=== PATIENT | female | born 1945 | race Caucasian/White ===

== ENCOUNTER → 2020-12-13 02:59 | Outpatient (CLI) | payer MEDICARE, OTHER, SELFPAY ==
[2020-12-13 20:06] LABS: SARS-CoV-2 RNA PCR Negative
== END ==
PROVIDERS: PCP Internal Medicine; Visit Provider Internal Medicine Gastroenterology
DX: Z01.812 Encounter for preprocedural laboratory examination (principal); Z20.822 Contact with and (suspected) exposure to COVID-19
CPT/HCPCS: C9803; U0003; U0005

== ENCOUNTER 2020-12-16 03:13 | Day surgery (SDC) | payer MEDICARE, OTHER, SELFPAY ==
[2020-12-08 15:45] VITALS: BMI 33.0
[2020-12-16 07:53] VITALS: BP 133/63; PULSE 67; RESP 15; TEMP 36.2; O2SAT 97; BMI 33.6
[2020-12-16] MEDS: LACTATED RINGERS 1,000 ML 150 ML IV CONT (08:10)
--- NOTE | 2020-12-16 08:41 | WPDANESEPPF ---
Anes - Initial Pre Proc Eval Procedure: Operation Date: 12/16/20 09:00 Proposed Procedures p Esophagogastroduodenoscopy - Ian Nair MD Date/Time: 12/16/20 08:41 Surgeon: Ian Nair MD Pre Op Diagnosis: GERD Patient Data Age: 75 Gender: F Height: 5 ft 6 in Weight: 94.6 kg Last Vital Signs Temp 97.1 F L 12/16/20 07:53 Pulse 67 12/16/20 07:53 Resp 15 12/16/20 07:53 BP 133/63 12/16/20 07:53 Pulse Ox 97 12/16/20 07:53 Allergies Allergy/AdvReac Type Severity Reaction Status Date / Time No Known Allergies Allergy Verified 12/16/20 07:49 Home Medications Medication Instructions Recorded Confirmed Type Adults Multivitamin 1 tablet PO DAILY 07/06/19 12/16/20 History Linzess 145 mcg PO DAILY 07/06/19 12/16/20 History [place]-3 Fish Oil 1 cap PO BID 07/06/19 12/16/20 History alprazolam 0.25 mg PO TID PRN 07/06/19 12/16/20 History aspirin 81 mg PO DAILY 07/06/19 12/16/20 History coQ10 (ubiquinol) 200 mg PO DAILY 07/06/19 12/16/20 History hydrochlorothiazide 25 mg PO DAILY 07/06/19 12/16/20 History ibuprofen 600 mg PO BID PRN 07/06/19 12/16/20 History omeprazole 20 mg PO DAILY 07/06/19 12/16/20 History potassium chloride 20 meq PO DAILY 07/06/19 12/16/20 History pravastatin 40 mg PO HS 07/06/19 12/16/20 History tramadol 50 mg PO QAM 07/06/19 12/16/20 History cholecalciferol (vitamin D3) 50 mcg PO DAILY 12/08/20 12/16/20 History conjugated estrogens [Premarin] 0.625 mg VAGINAL 2XW 12/08/20 12/16/20 History oxybutynin chloride 10 mg PO DAILY 12/08/20 12/16/20 History Patient hx anesthesia problems: none Family hx anesthesia problems: none PMFSH Past Medical History Medical History (Updated 10/27/20 @ 08:37 by Ian Nair MD) Arthritis BMI 34.0-34.9,adult Bronchitis Constipation COPD (chronic obstructive pulmonary disease) Family history of colon cancer Hyperlipidemia Hypertension Social History Social History (Updated 10/27/20 @ 08:22 by Courtney Vasquez CMA) Smoking packs per day: 1.5 Smoking cigarettes per day: 30.0 Years smoked: 40 Smoking pack-years: 60.00 Smoking status: Former smoker Alcohol intake: current Alcohol use details: rarely Substance use: never Living arrangements: with family Spiritual care concerns: No Anes - Eval Final PreProcedure Day of Procedure 12/16/20 08:41 Patient weight: overweight Heart: regular rate and rhythm Lungs: clear to auscultation Airway: Mallampati scale class III Neurological: alert and oriented Last oral intake: >/= 8 hours ASA classification: III Emergent: no Anesthetic plan: proceed Anesthesia type and monitoring: general GIVS and standard monitoring Informed Consent: The patient's anesthetic plan and its attendant risks and benefits were discussed with the patient/family/POA. Questions were solicited and answers provided to the satisfaction of the patient/family/POA.
--- NOTE | 2020-12-16 08:54 | PM.HPGS ---
History of Present Illness History of Present Illness Consent: Risks, benefits, and alternatives have been discussed and questions answered. Patient agrees to proceed with procedure. Chief complaint: GERD Narrative: Joyce Girard is a 75 year old female here for egd, she has long standing GERD on omeprazole for few years but since July more breakthrough using tums, never had egd Review of Systems Constitutional: Constitutional: Denies headache(s) and Denies weakness Eyes: Eyes: Denies blurry vision ENT: Reports Normal hearing present, Denies headache(s) and Denies neck pain Cardiovascular: Cardiovascular: Denies chest pain and Denies dyspnea Respiratory: Respiratory: Denies dyspnea Gastrointestinal: Gastrointestinal: Reports no additional gastrointestinal complaints Genitourinary: Genitourinary: Denies dysuria Musculoskeletal: Musculoskeletal: Denies neck pain Integumentary/Breasts: Skin/Breast: Denies dry skin Neurologic: Reports Normal hearing present, Denies headache(s) and Denies weakness Psychiatric: Psychiatric: Denies anxiety Endocrine: Endocrine: Denies change in body appearance Hematologic/Lymphatic: Hematologic/Lymphatic: Denies easy bleeding Allergic/Immunologic: Allergic/Immunologic: Denies urticaria PMF Past Medical History Medical History (Updated 12/16/20 @ 08:55 by Ian Nair MD) Arthritis BMI 34.0-34.9,adult Bronchitis Constipation COPD (chronic obstructive pulmonary disease) Family history of colon cancer GERD (gastroesophageal reflux disease) Hyperlipidemia Hypertension Social History Social History (Updated 10/27/20 @ 08:22 by Courtney Vasquez CMA) Smoking packs per day: 1.5 Smoking cigarettes per day: 30.0 Years smoked: 40 Smoking pack-years: 60.00 Smoking status: Former smoker Alcohol intake: current Alcohol use details: rarely Substance use: never Living arrangements: with family Spiritual care concerns: No Meds Home Medications and Allergies Home Medications Medication Instructions Recorded Confirmed Type Adults Multivitamin 1 tablet PO DAILY 07/06/19 12/16/20 History Linzess 145 mcg PO DAILY 07/06/19 12/16/20 History [place]-3 Fish Oil 1 cap PO BID 07/06/19 12/16/20 History alprazolam 0.25 mg PO TID PRN 07/06/19 12/16/20 History aspirin 81 mg PO DAILY 07/06/19 12/16/20 History coQ10 (ubiquinol) 200 mg PO DAILY 07/06/19 12/16/20 History hydrochlorothiazide 25 mg PO DAILY 07/06/19 12/16/20 History ibuprofen 600 mg PO BID PRN 07/06/19 12/16/20 History omeprazole 20 mg PO DAILY 07/06/19 12/16/20 History potassium chloride 20 meq PO DAILY 07/06/19 12/16/20 History pravastatin 40 mg PO HS 07/06/19 12/16/20 History tramadol 50 mg PO QAM 07/06/19 12/16/20 History cholecalciferol (vitamin D3) 50 mcg PO DAILY 12/08/20 12/16/20 History conjugated estrogens [Premarin] 0.625 mg VAGINAL 2XW 12/08/20 12/16/20 History oxybutynin chloride 10 mg PO DAILY 12/08/20 12/16/20 History Allergies Allergy/AdvReac Type Severity Reaction Status Date / Time No Known Allergies Allergy Verified 12/16/20 07:49 Vital Signs Vital Signs - 24 hr 12/16/20 07:53 Temperature 97.1 F L Pulse Rate 67 Respiratory Rate 15 Blood Pressure 133/63 Pulse Oximetry 97 Exam Const: General: comfortable and no acute distress HENMT: General nose exam: Normal nares present Eyes: General: appearance normal, both eyes and all related structures Neck: Neck: no JVD Resp: Auscultation: clear to auscultation bilaterally Cardio: Rate: regular rate Rhythm: regular rhythm GI: Inspection: non-distended GI Palp: Yes Soft to palpation Skin: General skin exam: normal color Neuro: General: gait normal Speech: normal speech Extrem: General: normal to inspection Psych: Mental Status: mental status grossly normal Assessment and Plan Assessment and plan (1) GERD (gastroesophageal reflux disease): Code(s): K21.9 - Gastro-e
[2020-12-16 09:05] VITALS: BP 142/72; PULSE 66; RESP 20; O2SAT 97
[2020-12-16 09:15] VITALS: BP 129/70; PULSE 65; RESP 22; O2SAT 97
[2020-12-16 09:25] VITALS: BP 124/73; PULSE 64; RESP 18; O2SAT 97
== END 2020-12-16 09:44 | disposition home or self-care (01) ==
PROVIDERS: PCP Internal Medicine; Visit Provider Internal Medicine Gastroenterology
PROC: 0DJ08ZZ Inspection of Upper Intestinal Tract, Via Natural or Artificial Opening Endoscopic (ICD-10-PCS; CPT 43235; principal; 2020-12-16 09:00)
DX: K21.00 Gastro-esophageal reflux disease with esophagitis, without bleeding (principal); K29.50 Unspecified chronic gastritis without bleeding; I10 Essential (primary) hypertension; E78.5 Hyperlipidemia, unspecified; J44.9 Chronic obstructive pulmonary disease, unspecified; Z80.0 Family history of malignant neoplasm of digestive organs; Z87.891 Personal history of nicotine dependence; Z79.82 Long term (current) use of aspirin
CPT/HCPCS: 43239; 88305; 88342; J2001; J2704; J7120

== ENCOUNTER 2023-08-01 12:53 | Outpatient (CLI) | payer MEDICARE, OTHER, SELFPAY | END 2023-08-01 12:54 | disposition home or self-care (01) | LOC: ANHAUDASC 12:54 | PROVIDERS: PCP Internal Medicine; Visit Provider Otolaryngology | DX: H90.3 Sensorineural hearing loss, bilateral (principal) | CPT/HCPCS: 92557; 92567 ==

== ENCOUNTER 2024-09-11 01:59 | Day surgery (SDC) | payer MEDICARE, OTHER, SELFPAY ==
[2024-08-26 10:52] VITALS: BMI 36.4
--- NOTE | 2024-08-28 10:54 | PC.NURSE ---
Pt voiced concern if she needs antibiotics prior to procedure due to have a knee replacement, she was advised to call her ortho. surgeon. She called back and stated the orthopedic surgeons office state it was up to Dr. Gibbs. I called pt and left message that Dr. Gibbs does not routinely give antibiotics for this procedure as it is not recommended under the guidelines.
--- OUTSIDE RECORDS SUMMARY | 2024-09-11 02:03 | XMS_ITS | Continuity of Care Document ---
Author Organization [facility] Address [address] [place] [address] Phone Care Team Providers Care Finance Professor Name Role Phone Rambo Decker Unavailable Unavailable Procedures Procedure Date Eye Exam & Treatment Refraction Eye Exam & Treatment Refraction Eye Exam, New Patient Refraction Advance Directives Directive Yes / No Effective Date File Name No Information Encounters Encounter Description Practice Location Reason(s) For Visit Diagnoses Date Provider Providers Copied on Encounter [facility], [id number] [place] [address] [address], [place], [place], [id number], tel:[phone] [facility] No Information Juan Ramon-1 [phone] 0 Brianne Ricks. [address] , [address], [place], [place], [facility], . tel:[phone] [facility], [address], [place], [place], [id number], [place] tel:[phone] [facility] No Information Juan Ramon-1 [phone] Brianne Ricks. [address], [address], [place], [place], [facility], [place]. tel:[phone] [facility], [address], [place], [place], [id number], tel:[phone] [facility] No Information Juan Ramon-0 6-200 7 [employer] [facility]. [address] , [address], [place], [address], [place]. tel:[phone] Family History Family Member Type Diagnosis Age At Onset No Information Payers Payer name Insurance type Covered democrat ID Authoriza tiadry(s) [place] [id number] [id number] Social History Type Description Quantity Date Captured Comments Sex Female Smoking Status No Information Chief Complaint And Reason For Visit No Information Reason For Referral Reason For Referral No Information History Of Present Illness Encounter Date Complaint History Of Prese nt Illness No Information Functional Status Date Functional Assessmen t No Information Instructions Date Instruction Additional Infor mation No Information Assessments Type Assessment Date No Information Patient Care Teams Name Effective Dates (start - stop) Status Members No Information
[2024-09-11 07:27] VITALS: BMI 34.9
[2024-09-11 07:30] VITALS: BP 147/65; PULSE 85; RESP 16; TEMP 36.5; O2SAT 94
[2024-09-11] MEDS: LACTATED RINGERS 1,000 ML 150 ML IV CONT (07:40)
--- NOTE | 2024-09-11 07:59 | P.PNAN_ITS ---
Anes - Initial Pre Proc Eval Procedure: Operation Date: 09/11/24 08:30 Proposed Procedures p Colonoscopy - Mingo Gibbs MD Date/Time: 09/11/24 07:59 Surgeon: Mingo Gibbs MD Pre Op Diagnosis: Personal HX and family HX of colon polyps Patient Data Age: 79 Gender: F Height: 1.63 m Weight: 92.4 kg Last Vital Signs Temp 36.5 C 09/11/24 07:30 Pulse 85 09/11/24 07:30 Resp 16 09/11/24 07:30 BP 147/65 H 09/11/24 07:30 Pulse Ox 94 09/11/24 07:30 O2 Del Method Room Air 09/11/24 07:30 Allergies Allergy/AdvReac Type Severity Reaction Status Date / Time No Known Allergies Allergy Verified 09/11/24 07:25 Home Medications ?Medication ?Instructions ?Recorded ?Confirmed ?Type alprazolam 0.25 mg tablet 0.25 mg PO TID PRN Anxiety 07/06/19 09/11/24 History aspirin 81 mg tablet,delayed 81 mg PO DAILY 07/06/19 09/11/24 History release hydrochlorothiazide 25 mg tablet 25 mg PO DAILY 07/06/19 09/11/24 History linaclotide 145 mcg capsule 145 mcg PO DAILY 07/06/19 09/11/24 History (Linzess) multivit with minerals-iron 18 1 tablet PO DAILY 07/06/19 09/11/24 History mg-folic ac 400 mcg-vit K 25 mcg tablet (Adults Multivitamin) omega 3-gtr-nxg-fish oil 910 1 cap PO BID 07/06/19 09/11/24 History mg-1,400 mg capsule ([place]-3 Fish Oil) pravastatin 40 mg tablet 40 mg PO HS 07/06/19 09/11/24 History tramadol 50 mg tablet 50 mg PO QAM 07/06/19 09/11/24 History cholecalciferol (vitamin D3) 50 50 mcg PO DAILY 12/08/20 09/11/24 History mcg (2,000 unit) capsule conjugated estrogens 0.625 mg/gram 0.625 mg vaginal 2XW 12/08/20 09/11/24 History vaginal cream (Premarin) omeprazole 20 mg capsule,delayed 20 mg PO DAILY #90 caps 12/07/21 09/11/24 Rx release ibuprofen 200 mg tablet 800 mg PO BID PRN Pain 07/02/23 09/11/24 History potassium chloride 20 mEq oral 20 meq PO BID 07/02/23 09/11/24 History packet fluticasone furoate 50 1 inh inhalation Q24H 08/26/24 09/11/24 History mcg-vilanterol 25 mcg/dose inhalation powder (Breo Ellipta) Patient hx anesthesia problems: none Family hx anesthesia problems: none Results Review: All pre-operative results and documents have been reviewed as part of the pre- operative evaluation. [facility] Past Medical History Medical History GERD (gastroesophageal reflux disease) Constipation BMI 34.0-34.9,adult Family history of colon cancer Arthritis Hyperlipidemia Hypertension COPD (chronic obstructive pulmonary disease) Bronchitis Surgical History Surgical History History of hip replacement (~10/2022) Family History Family History Sibling , 01/2022 Agent orange exposure Social History Social History Social History: Caffeine-coffee Smoking packs per day: 1.5 Smoking cigarettes per day: 30.0 Years smoked: 40 Smoking pack-years: 60.00 Smoking status: Former smoker Smoking end date: 07/29/10 Alcohol intake: current Alcohol use details: rarely Substance use: never Lack of Transportation: No Lack of Food: Never True Current Housing: I Have Housing Concerned About Future Housing: No Difficulty Paying Gas/Electric Bills: No Difficulty Paying for Meds: No Currently Unemployed: No Education: Trade/Vocational Certificate Difficulty w/ Childcare or Family Care: No Living arrangements: alone Spiritual care concerns: No Anes - Eval Final PreProcedure Day of Procedure 09/11/24 07:59 Patient weight: obese Heart: regular rate and rhythm Lungs: clear to auscultation Airway: Mallampati scale class II Neurological: alert and oriented Last oral intake: >/= 8 hours ASA classification: III Emergent: no Anesthetic plan: proceed Anesthesia type and monitoring: general GIVS and standard monitoring Results Review: All pre-operative results and documents have been reviewed as part of the pre- operative evaluation. Informed Consent: The patient's anesthetic plan and its attendant risks and benefits were discussed with the patient/family/POA. Questions were solicited and answers provided to the satisfaction of the patient/family/POA.
--- NOTE | 2024-09-11 08:26 | P.HP_ITS ---
H&P: HPI History of Present Illness Date/Time: 09/11/24 08:26 Chief Complaint: History of colon polyps Narrative: The patient has a history of colonic polyps, the last colonoscopy was approximately 5 year Review of Systems Review of Systems: All systems reviewed & are unremarkable except as noted in HPI and below PMFSH Past Medical History Medical History GERD (gastroesophageal reflux disease) Constipation BMI 34.0-34.9,adult Family history of colon cancer Arthritis Hyperlipidemia Hypertension COPD (chronic obstructive pulmonary disease) Bronchitis Surgical History Surgical History History of hip replacement (~10/2022) Family History Family History Sibling , 01/2022 Agent orange exposure Social History Social History Social History: Caffeine-coffee Smoking packs per day: 1.5 Smoking cigarettes per day: 30.0 Years smoked: 40 Smoking pack-years: 60.00 Smoking status: Former smoker Smoking end date: 07/29/10 Alcohol intake: current Alcohol use details: rarely Substance use: never Lack of Transportation: No Lack of Food: Never True Current Housing: I Have Housing Concerned About Future Housing: No Difficulty Paying Gas/Electric Bills: No Difficulty Paying for Meds: No Currently Unemployed: No Education: Trade/Vocational Certificate Difficulty w/ Childcare or Family Care: No Living arrangements: alone Spiritual care concerns: No Meds Home Medications and Allergies Home Medications ?Medication ?Instructions ?Recorded ?Confirmed ?Type alprazolam 0.25 mg tablet 0.25 mg PO TID PRN Anxiety 07/06/19 09/11/24 History aspirin 81 mg tablet,delayed 81 mg PO DAILY 07/06/19 09/11/24 History release hydrochlorothiazide 25 mg tablet 25 mg PO DAILY 07/06/19 09/11/24 History linaclotide 145 mcg capsule 145 mcg PO DAILY 07/06/19 09/11/24 History (Linzess) multivit with minerals-iron 18 1 tablet PO DAILY 07/06/19 09/11/24 History mg-folic ac 400 mcg-vit K 25 mcg tablet (Adults Multivitamin) omega 4-fkz-bar-fish oil 910 1 cap PO BID 07/06/19 09/11/24 History mg-1,400 mg capsule ([place]-3 Fish Oil) pravastatin 40 mg tablet 40 mg PO HS 07/06/19 09/11/24 History tramadol 50 mg tablet 50 mg PO QAM 07/06/19 09/11/24 History cholecalciferol (vitamin D3) 50 50 mcg PO DAILY 12/08/20 09/11/24 History mcg (2,000 unit) capsule conjugated estrogens 0.625 mg/gram 0.625 mg vaginal 2XW 12/08/20 09/11/24 Histo ry vaginal cream (Premarin) omeprazole 20 mg capsule,delayed 20 mg PO DAILY #90 caps 12/07/21 09/11/24 Rx release ibuprofen 200 mg tablet 800 mg PO BID PRN Pain 07/02/23 09/11/24 History potassium chloride 20 mEq oral 20 meq PO BID 07/02/23 09/11/24 History packet fluticasone furoate 50 1 inh inhalation Q24H 08/26/24 09/11/24 History mcg-vilanterol 25 mcg/dose inhalation powder (Breo Ellipta) Allergies Allergy/AdvReac Type Severity Reaction Status Date / Time No Known Allergies Allergy Verified 09/11/24 07:25 Vital Signs Vital Signs - 24 hr 09/11/24 07:30 Temperature 97.7 F Pulse Rate 85 Respiratory Rate 16 Blood Pressure 147/65 H Pulse Oximetry 94 Oxygen Delivery Room Air Exam Const: General: cooperative and healthy appearing Resp: Effort & Inspection: normal respiratory effort and able to speak in complete sentences Auscultation: clear to auscultation bilaterally Cardio: Rate: regular rate Rhythm: regular rhythm GI: Inspection: normal to inspection GI Palp: No No hepatosplenomegaly present Auscultation: normal bowel sounds Rectal Exam: deferred Skin: General skin exam: normal color Psych: Appearance: grossly normal Mental Status: mental status grossly normal Assessment and Plan Assessment and plan (1) History of colonic polyps: Code(s): Z86.0100 - Personal history of colon polyps, unspecified Status: Acute Assessment and Plan: The patient is deemed a good candidate for the procedure. Consent signed. Will proceed.
[2024-09-11 09:02] VITALS: BP 144/78; PULSE 74; RESP 23; O2SAT 97
[2024-09-11 09:12] VITALS: BP 140/76; PULSE 74; RESP 17; O2SAT 98
[2024-09-11 09:22] VITALS: BP 148/74; PULSE 73; RESP 18; O2SAT 100
== END 2024-09-11 09:42 | disposition home or self-care (01) ==
PROVIDERS: PCP Internal Medicine; Visit Provider Internal Medicine Gastroenterology
PROC: 0DJD8ZZ Inspection of Lower Intestinal Tract, Via Natural or Artificial Opening Endoscopic (ICD-10-PCS; CPT 45378; principal; 2024-09-11 08:30)
DX: Z12.11 Encounter for screening for malignant neoplasm of colon (principal); K57.30 Diverticulosis of large intestine without perforation or abscess without bleeding; Z86.0100 Personal history of colon polyps, unspecified; Z87.891 Personal history of nicotine dependence
CPT/HCPCS: G0105; J2003; J2704; J7120

== ENCOUNTER 2024-12-03 12:21 | Outpatient (CLI) | payer MEDICARE, OTHER, SELFPAY ==
--- OUTSIDE RECORDS SUMMARY | 2024-12-03 12:27 | XMS_ITS | Data Portability ---
Author Organization [facility] JAYDENEdwar Address [address] [place] [address] Assessment Encounter Date Assessment Date Assessment LastModified by Organization Details LastModified Time 02/01/2021 02/01/2021 Mindy mayorga Not available 02/02/2021 09:03:28 Plan of Treatment Reminders Order Date Submit Date Provider Last Modified By Organization Details Last Modified Time Details Appointments None recorded. Lab urinalysi s, dipstick 2017 018 [email or web address] In-Office Order, Internal Use Only DO Not Attach Compendium DO Not Attach Compendium, Do Not Delete/merge, [id number] 8 11:02:13 Referral urologist referral 2019 020 [facility] Irving Villegas MD, [address] [facility] [address], [place], [address], 0 17:26:14 Procedures None recorded. Surgeries None recorded. Imaging MAMMO, screening , bilateral 2020 021 [facility] ([facility] Sched[facility]), [address] [place], [address], 1 13:24:01 MAMMO, screening , bilateral 2018 019 [facility] ([facility] Scheduling), [address] [place], [address], 9 02:31:07 MAMMO, screening , bilateral 2017 018 [facility] ([facility] Call Scheduling), [address] [place], [address], 8 13:52:18 Medication Orders Linzess 145 mcg capsule 2020 021 [facility], [address] [place] [address], [id number], 1 15:49:35 Premarin 0.625 mg/gram vaginal cream 2020 021 [facility], [address] [place] [address], [id number], 1 15:49:36 oxybutyni n chloride ER 10 mg tablet,ex tended release 24 hr 2020 021 [facility], [address] [place] [address], [id number], 1 15:49:37 Premarin 0.625 mg/gram vaginal cream 2019 020 [facility], [address] [place] [address], [id number], 0 12:33:09 Elier s Butt Paste 40 % topical ointment 2019 020 [facility], [address] [place] [address], [id number], 0 17:51:11 Premarin 0.625 mg/gram vaginal cream 2019 020 [facility], [address] [place] [address], [id number], 0 15:00:22 Linzess 145 mcg capsule 2018 019 [facility] [address] [place], [address], 9 12:43:35 Linzess 145 mcg capsule 2017 018 [facility] [address] [place], [address], 8 11:02:52 Complete Multivita min tablet 2017 018 [facility] [address] [place], [address], 8 14:59:34 Calcium 500 + D 500 mg-5 mcg (200 unit) tablet 2017 018 [email or web address] [facility] [address] [place], [address], 9 12:21:03 Patient TargetsNo targets recorded. Patient Instructions Encounter Date Encounter Id Patient Instructions Last Modified By Organization Details Last Modified Time 10/14/2017 [id number] mammogram: about this test mwasserman Not available 10/14/2017 11:02:38 mammogram screening patient instructions mwasserman Not available 10/14/2017 11:02:38 10/16/2018 [id number] mammogram: about this test mwasserman Not available 10/16/2018 12:43:35 10/21/2019 [id number] atrophic vaginitis: care instructions mwasserman Not available 10/21/2019 14:58:54 01/26/2020 [id number] atrophic vaginitis: care instructions mwasserman Not available 01/26/2020 15:06:28 Stress Incontinence: Care Instructions mwasserman Not available 01/26/2020 12:31:51 kegel exercises: care instructions mwasserman Not available 01/26/2020 17:54:08 urinary incontinence information mwasserman Not available 01/26/2020 17:54:08 kegel exercises mwasserman Not available 01/26/2020 17:54:08 Eczema: Care Instructions mwasserman Not available 01/26/2020 17:49:47 02/01/2021 [id number] mammogram: about this test mwasserman Not available 02/01/2021 15:47:59 mammogram screening patient instructions mwasserman Not available 02/01/2021 15:48:00 atrophic vaginitis: care instructions mwasserman Not available 02/01/2021 15:47:59 Refilled meds for atrophic vagina, overactive bladder, and chronic idiopathic constipation. Discussed home breast exam and placed an order for mammogram. [email or web address] Not available 02/02/2021 10:05:19 Reason for Referral Urologist Referral for Urina ry incontinence Referring Physician: Omid Albright, RECEIVABLE CLERK, Encounter Date: 01/26/2020 Results Created Date Observation Date Name Description Value Unit Range Abnormal Flag Note LastModifiedBy Organization Detail LastModifiedTime 10/15/19 18 10/14/2017 urina lysis , dipst ick Leukocytes Negati ve Not Available In-Office Order Internal Use Only DO Not Attach Compendium DO Not Attach Compendium, Do Not Delete/merge, [id number] 10/14/2017 10:39:09 10/15/19 18 10/14/2017 urina lysis , dipst ick Nitrite negati ve Not Available In-Office Order Internal Use Only DO Not Attach Compendium DO Not Attach Compendium, Do Not Delete/merge, [id number] 10/14/2017 10:39:09 10/15/19 18 10/14/2017 urina lysis , dipst ick Urobilinogen .2 Not Available In-Of fice Order Internal Use Only DO Not Attach Compendium DO Not Attach Compendium, Do Not Delete/merge, [id number] 10/14/2017 10:39:09 10/15/19 18 10/14/2017 urina lysis , dipst ick Protein Negati ve Not Available In-Office Order Internal Use Only DO Not Attach Compendium DO Not Attach Compendium, Do Not Delete/merge, [id number] 10/14/2017 10:39:09 10/15/19 18 10/14/2017 urina lysis , dipst ick pH 6.0 Not Available In-Office Order Internal Use Only DO Not Attach Compendium DO Not Attach Compendium, Do Not Delete/merge, [id number] 10/14/2017 10:39:09 10/15/19 18 10/14/2017 urina lysis , dipst ick Blood Negati ve Not Available In-Office Order Internal Use Only DO Not Attach Compendium DO Not Attach Compendium, Do Not Delete/merge, [id number] 10/14/2017 10:39:09 10/15/19 18 10/14/2017 urina lysis , dipst ick Specific [place] 1.025 Not Available In-Off ice Order Internal Use Only DO Not Attach Compendium DO Not Attach Compendium, Do Not Delete/merge, [id number] 10/14/2017 10:39:09 10/15/19 18 10/14/2017 urina lysis , dipst ick Ketone Trace Not Available In-Office Order Internal Use Only DO Not Attach Compendium DO Not Attach Compendium, Do Not Delete/merge, [id number] 10/14/2017 10:39:09 10/15/19 18 10/14/2017 urina lysis , dipst ick Bilirubin Negati ve Not Available In-Office Order Internal Use Only DO Not Attach Compendium DO Not Attach Compendium, Do Not Delete/merge, 10/14/2017 10:39:09 10/15/19 18 10/14/2017 urina lysis , dipst ick Glucose Negati ve Not Available In-Office Order Internal Use Only DO Not Attach Compendium DO Not Attach Compendium, Do Not Delete/merge, [id number] 10/14/2017 10:39:09 10/15/19 18 10/14/2017 urina lysis , dipst ick Appearance Slight ly Cloudy Not Available In-Office Order Internal Use Only DO Not Attach Compendium DO Not Attach Compendium, Do Not Delete/merge, [id number] 10/14/2017 10:39:09 10/15/19 18 10/14/2017 urina lysis , dipst ick Color Yellow Not Available In-Office Order Internal Use Only DO Not Attach Compendium DO Not Attach Compendium, Do Not Delete/merge, [id number] 10/14/2017 10:39:09 11/02/19 18 11/01/2017 MAMMO , scree mariela, bilat eral No observ ation record ed. [facility] (Imaging) [address] [place], [address], 11/03/2017 17:49:21 11/14/19 19 11/13/2018 MAMMO , scree mariela, bilat eral No observ ation record ed. [facility] (Imaging) [address] [place], [address], 11/24/2018 17:52:23 12/30/19 20 12/30/2019 MAMMO , scree mariela, bilat eral No observ ation record ed. [facility] ([facility] Call Scheduling) [address] [place], [address], 01/26/2020 17:36:35 12/30/19 20 12/30/2019 MAMMO , scree mariela, bilat eral No observ ation record ed. [facility] (Imaging) [address] [place], [address], 01/26/2020 17:36:35 02/09/20 21 02/08/2021 MAMMO , scree mariela, bilat eral No observ ation record ed. [facility] [address] [place], [address], 02/11/2021 14:21:26 Result Notes None recorded. Problems Name Problem SNOMED Code Status Onset Date Resolution Date Notes Provider Name and Address Organization Details Recorded Time Chronic idiopathic constipation 62229598 Active 2017 Omid harden, [place] - [facility] 8 11:01:55 Atrophic vaginitis 82349551 Active Omid Jose Ramon null, [place] - [facility] 6 11:22:14 Menopausal syndrome 443845220 Active Omid Jose Ramon null, [place] - [facility] 6 11:22:14 Candidiasis of vagina 34765587 Active Omid Jose Ramon null, [place] - [facility] 6 19:43:01 Problem Notes None recorded. Procedures Surgical History Date Name Laterality Status Provider Name and Address Organization Details Recorded Time 12/30/19 20 Most Recent Mammogram completed CHARLI Hernandez - [facility] 01/26/2020 11:19:46 10/07/19 15 Date of Last Pap Smear completed CHARLI Del Toro - [facility] 10/10/2015 10:43:09 07/29/19 09 Back Surgery completed CHARLI Hernandez - [facility] 10/16/2018 12:23:29 07/29/18 92 Cholecystectomy completed Haley Hardy MA [place] - [facility] 10/10/2016 10:22:50 Imaging Results Imaging Date Name Status LastModified by Organiz ation Details LastModified Time 11/01/2017 MAMMO, screening, bilateral completed [facility] (Imaging) [address] [place], [address], 11/03/2017 17:49:21 11/13/2018 MAMMO, screening, bilateral completed [facility] (Imaging) [address] [place], [address], 11/24/2018 17:52:23 12/30/2019 MAMMO, screening, bilateral completed [facility] ([facility] Call Scheduling) [address] [place], [address], 01/26/2020 17:36:35 12/30/2019 MAMMO, screening, bilateral completed [facility] (Imaging) [address] [place], [address], 01/26/2020 17:36:35 02/08/2021 MAMMO, screening, bilateral completed [facility] [address] [place], [address], 02/11/2021 14:21:26 Procedure Notes None recorded. Medical Equipment None Reported. Allergies Allergen ID Allergen Name Allergen Category Reaction Reaction Severity Criticality Documentation Date Start Date Code Code System Note Provider Name and Address Organization Details Recorded Time 46661 Ansaid medicatio n hives moderate Not available 10/06/2014 1 RxNorm Haley Hardy MA null, [place] - [facility] 6 10:49:19 Medications Name Sig Start Date Stop Date Status Note LastModified by Organization Details LastModified Time amoxicillin 500 mg capsule TAKE 2 CAPSULES BY MOUTH NOW AND THEN 1 THREE TIMES DAILY active Not Available Not Available No t Available terconazole 0.4 % vaginal cream Insert 1 applicato rful every day by vaginal route for 3 days. 10/16 completed Not Available Not Available Not Available oxybutynin chloride ER 10 mg tablet,exte nded release 24 hr TAKE 1 TABLET BY MOUTH ONCE DAILY 2020 active Not Available Not Available Not Avai lable pravastatin 40 mg tablet TAKE 1 TABLET BY MOUTH ONCE DAILY active Not Available Not Available No t Available ibuprofen 800 mg tablet TAKE 1 TABLET BY MOUTH TWICE DAILY active Not Available Not Available No t Available ofloxacin 0.3 % eye drops 10/16 completed Not Available Not Available Not Available terconazole 0.8 % vaginal cream 10/10 completed Not Available Not Available Not Available tramadol 50 mg tablet TAKE 1 TABLET BY MOUTH 4 TIMES DAILY active Not Available Not Available No t Available ketorolac 0.5 % eye drops 10/20 completed Not Available Not Available Not Available alprazolam 0.25 mg tablet TAKE 1 TABLET BY MOUTH TWICE DAILY FOR ANXIETY active Not Available Not Available No t Available potassium chloride ER 20 mEq tablet,exte nded release(par t/cryst) active Not Available Not Available Not Available prednisolon e acetate 1 % eye drops,suspe nsion 10/20 completed Not Available Not Available Not Available hydrocodone 7.5 mg-acetamin ophen 325 mg tablet 10/16 completed Not Available Not Available Not Available omeprazole 20 mg capsule,del ayed release TAKE 1 CAPSULE BY MOUTH ONCE DAILY active Not Available Not Available No t Available raloxifene 60 mg tablet TAKE ONE TABLET BY MOUTH ONCE DAILY 10/16 completed Not Available Not Available Not Available hydrochloro thiazide 25 mg tablet TAKE 1 TABLET BY MOUTH ONCE DAILY active Not Available Not Available No t Available Aspir-81 mg tablet,tyron yed release Take 1 tablet every day by oral route. active Not Available Not Available No t Available methylpredn isolone 4 mg tablets in a dose pack 10/16 completed Not Available Not Available Not Available Calcium 500 + D 500 mg-5 mcg (200 unit) tablet Take 1 tablet twice a day by oral route. 10/16 completed Not Available Not Available Not Available Complete Multivitami n tablet Take 1 tablet every day by oral route. 2017 active Not Available Not Available Not Avai lable Premarin 0.625 mg/gram vaginal cream Insert 1 g twice a week by vaginal route. 2020 active Not Available Not Available Not Avai lable TriLyte With Flavor Packets 420 gram oral solution 10/10 completed Not Available Not Available Not Available Vitamin D active Not Available Not Nadira ilable Not Available Adacel (Tdap Adolesn/Baljit lt)(PF)2 Lf-(2.5-5-3 -5)-5 Lf/0.5 mL IM syringe 10/10 completed Not Available Not Available Not Available Zyrtec 10 mg capsule Take 1 capsule every day by oral route. active Not Available Not Available No t Available Boudreauxs Butt Paste 40 % topical ointment Apply 1 applicati on 3 times a day by topical route as needed. 2019 active Not Available Not Available Not Avai lable Linzess 145 mcg capsule active Not Available Not Available Not Available potassium chloride ER 20 mEq tablet,exte nded release TAKE 1 TABLET BY MOUTH ONCE DAILY active Not Available Not Available No t Available multivit,mi [id number] active Not Available Not Available Not Available Linzess 72 mcg capsule 10/16 completed Not Available Not Available Not Available Vitals Date Recorded Body height Body mass index (BMI) Body weight Systolic blood pressure Diastolic blood pressure Provider Name and Address Organization Details Last Updated DateTime 10/14/2017 167.64 cm 34.7 kg/m2 91194.36 g 122 mm[Hg] 82 mm[Hg] Blanca Fay MA [facility] 8 10:36:00 Date Recorded Body height Body mass index (BMI) Body weight Systolic blood pressure Diastolic blood pressure Provider Name and Address Organization Details Last Updated DateTime 10/16/2018 167.64 cm 33.7 kg/m2 55963.81 g 128 mm[Hg] 74 mm[Hg] Lakeshia Berger MA [facility] 9 12:26:47 Date Recorded Body height Provider Name an d Address Organization Details Last Updated DateTime 10/21/2019 167.64 cm Nenita Welsh MA [facility] 10/20 14:40:21 Date Recorded Body height Body mass index (BMI) Body weight Systolic blood pressure Diastolic blood pressure Provider Name and Address Organization Details Last Updated DateTime 01/26/2020 167.64 cm 34.1 kg/m2 94138.99 g 102 mm[Hg] 58 mm[Hg] Lakeshia Berger [place] - [facility] 0 11:21:50 Date Recorded Body height Body mass index (BMI) Body weight Systolic blood pressure Diastolic blood pressure Provider Name and Address Organization Details Last Updated DateTime 02/01/2021 167.64 cm 33.9 kg/m2 52607.4 g 124 mm[Hg] 80 mm[Hg] Aniya Porter [place] - [facility] 1 15:12:49 Social History Question Answer Notes LastModified by Organizat ion Details LastModified Time Tobacco Smoking Status Former Smoker 10 YEARS AGO Nenita Welsh [place] null, [place] - [facility] 10/21/2019 14:44:31 Do You Have An Advance Directive? Yes Information not available 10/06/2014 What Is Your Level Of Alcohol Consumption? Occasional Information not available 10/06/2014 Is Blood Transfusion Acceptable In An Emergency? Yes Information not available 10/06/2014 What Is Your Level Of Caffeine Consumption? Heavy Information not available 10/06/2014 How Much Tobacco Do You Chew? None Information not available 10/06/2014 Are You Currently Employed? No Information not available 10/06/2014 What Type Of Diet Are You Following? REGULAR Information not available 10/06/2014 Which Illicit Or Recreational Drugs Have You Used? None Information not available 10/06/2014 Do You Or Have You Ever Used E-cigarettes Or Vape? Never Used Electronic Cigarettes Information not available 10/21/2019 Education 2 Year College Informatio n not available 10/06/2014 What Is Your Occupation? [employer] Information not available 10/06/2014 Live Alone Or With Others? Alone Information not available 10/06/2014 What Was The Date Of Your Most Recent Tobacco Screening? 02/01/2021 Information not available 02/01/2021 How Many Children Do You Have? 0 Information not available 10/06/2014 Performs Monthly Self-breast Exam? Yes Information not available 10/06/2014 Do You Use Protection During Sex? No Information not available 10/06/2014 What Is Your Relationship Status? Information not available 10/06/2014 Seat Belts Used Routinely Yes Information not available 10/06/2014 Are You Sexually Active? No Information not available 10/06/2014 Do You Or Have You Ever Used Smokeless Tobacco? Never Used Smokeless Tobacco Information not available 10/21/2019 How Much Tobacco Do You Smoke? No Information not available 10/06/2014 General Stress Level Low Information not available 10/06/2014 Do You Use Sunscreen Routinely? No Information not available 10/06/2014 On What Date Was Tobacco Cessation Counseling Provided? 02/01/2021 Information not available 02/01/2021 Sex: Unknown Functional Status Question Answer Note LastModified by Organizat ion Details LastModified Time What is your exercise level? Occasional Information not available 10/06/2014 Mental Status None recorded. Family History Relationship Description Onset Age of this Age Resolved Age Notes LastModified by Organization Details LastModified Time Father Malignant neoplasm of lung mwasserman Not available 10/09 11:07:46 Mother Multiple sclerosis mwasserman Not available 10/09 11:07:46 Medical History Condition Response Other N Breast Cancer N Lung Disease Y Depression N Blood Clots N Breast Problem N Anesthesia Complications N Headaches/Migraines N Anxiety Disorder N Muscle, Joint, or Bone Problems N Arthritis N Polyps N Infertility N Acid Reflux (GERD) N Cancer N Stroke N Endometriosis N High Cholesterol Y Liver Disease N Fibromyalgia N Kidney Disease N Heart Problems N Thyroid Problems N Kidney or Bladder Problems N GI Problems N Acne N Eating Disorder N Anemia N Diabetes N Ovarian Cancer N Blood Transfusions N Seizures/Epilepsy N Abuse/Domestic Violence N Asthma N Hepatitis N Heart Disease N Pre-Eclampsia N Hypertension N Osteoporosis N Gynecological History Statement/Question Response Abnormal Pap Y On BCP's at Conception? N STIs/STDs N HPV Vaccine N Most Recent Mammogram 12/30/2019 Age at Menarche 12 Current Control Method None If Post Menopausal, Age at Menopause 39 Sexually Active? N Menses Monthly N Date of Last Pap Smear 10/06/2014 Sexual Problems? N LMP Unknown Desired Control Method N/A Obstetrics History GPAL:G 0 P 0 0 0 0 Type Value Multiple Births 0 Full Term 0 Induced 0 Spontaneous 0 Premature 0 Living 0 Ectopics 0 Total 0 Immunizations Vaccine Type Date Status Note Provider Nam e and Address Organization Details Recorded Time Influenza, split virus, quadrivalent, preservative 9 completed Nenita Welhs MA fina, [place] - [facility] 10/21/2019 14:43:53 COVID-19, mRNA, LNP-S, PF, 100 mcg/0.5mL dose or 50 mcg/0.25mL dose 1 completed William harden, DAVID - [facility] 01/27/2021 16:14:19 COVID-19, mRNA, LNP-S, PF, 100 mcg/0.5mL dose or 50 mcg/0.25mL dose 1 completed William Femi fina, [place] - [facility] 01/27/2021 16:14:38 Past Encounters Encounter ID Performer Location Encounter Start Date Encounter Closed Date Diagnosis/Indication Diagnosis SNOMED-CT Code Diagnosis ICD10 Code Diagnosis Note [id number] MD Ricardo Andersen (RECEIVABLE CLERK) [address] [place] [address] [id number] 10/06/2014 09:51:46 10/06/2014 12:04:59 Gynecologic examination 62111235 Postmenopausal state 60296727 Screening for malignant neoplasm of breast 798415945 [id number] MD Ricardo Andersen (RECEIVABLE CLERK) [address] [place] [address] [id number] 10/10/2015 10:36:05 10/10/2015 11:57:46 Atrophic vaginitis 33481759 N95.2 Menopausal syndrome 1237 58488 N95.9 Screening mammography 24 823204 Z12.31 [id number] MD Ricardo Andersen (RECEIVABLE CLERK) [address] [place] [address] [id number] 10/10/2016 09:56:47 10/11/2016 16:11:10 Screening mammography 83150847 Z12.31 Irritable bowel syndrome 25339011 K58.9 Swollen abdomen 26291193 R14.0 Atrophic vaginitis 48452 000 N95.2 Obesity 916159715 E66.9 [id number] MD Ricardo Andersen (RECEIVABLE CLERK) [address] [place] [address] [id number] 10/14/2017 10:01:40 10/14/2017 11:12:29 Chronic idiopathic constipation 81744956 K59.04 Irritable bowel syndrome 02141954 K58.9 Screening mammography 24 906530 Z12.31 Family gianni nning surveillance 117545632 Z30.09 [id number] Omid Albright MD [facility] (RECEIVABLE CLERK) [address] [place] [address] [id number] 0 10/16/2018 11:52:09 10/17/2018 16:25:30 Screening mammography 96521032 Z12.31 Irritable bowel syndrome 42025340 K58.9 [id number] Omid Albright MD [facility] (RECEIVABLE CLERK) [address] [place] [address] [id number] 10/21/2019 14:10:56 10/21/2019 15:12:15 Atrophic vaginitis 39177770 N95.2 [id number] Omid Albright MD [facility] (RECEIVABLE CLERK) [address] [place] [address] [id number] 01/26/2020 10:46:51 01/27/2020 11:39:19 Menopausal syndrome 510455690 N95.9 Atrophic vaginitis 34525 000 N95.2 Urinary incontinence 165 709515 R32 Atopic dermatitis 989319 01 L20.9 [id number] Omid Albright MD [facility] (RECEIVABLE CLERK) [address] [place] [address] [id number] 02/01/2021 14:50:04 02/11/2021 20:12:20 Atrophic vaginitis 98200800 N95.2 Menopausal syndrome 1237 59918 N95.9 Screening mammography 24 446640 Z12.31 Chronic id iopathic constipation 47696519 K59.04 Overactive urinary bladder 590379219 N32.81 Health Concerns Section Related Observation LastModified by Organization Detai ls LastModified Time None Recorded Concern Status LastModified by Organization Details LastModified Time None Recorded Advance Directives Directive Y: Payers Encounter Date Sequence Insurance Name Policy Number Policy Kebede Covered Member ID Kebede Member ID Guarantor Name 10/14/2017 1 [place] Mine Girard [id number] Joyce Bolton Shaji 10/14/2017 2 [employer] (MEDICARE SUPPLEMENT) Joyce Shethziol [id number] Joyce Bolton Shaji 10/16/2018 1 [place] Mnie Shaji [id number] Joyce Bolton Shaji 10/16/2018 2 [employer] (MEDICARE SUPPLEMENT) Joyce Rodriguez Shaji [id number] Joyce Bolton Shaji 10/21/2019 1 [place] Mine Shaji [id number] Joyce Bolton Shaji 10/21/2019 2 [employer] (MEDICARE SUPPLEMENT) Joyce Rodriguez Shaji [id number] Joyce Bolton Shaji 01/26/2020 1 [place] Mine Shaji [id number] Joyce Bolton Shaji 01/26/2020 2 [employer] (MEDICARE SUPPLEMENT) Joyce Rodriguez Shaji [id number] Joyce Bolton Shaji 02/01/2021 1 [place] Mine Shaji [id number] Joyce Bolton Shaji 02/01/2021 2 [employer] (MEDICARE SUPPLEMENT) Joyce Rodriguez Shaji [id number] Shelli Shaji Notes Date Note Type Note Provider Name and Address Organization Details Recorded Time 10/14/2017 text/html 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 Post-MenopausalReporte d bypatient.Menopausal Symptoms:no menopausal symptoms; normal vaginal lubrication Vaginal Bleeding:history of menopause having occurred; no history of post menopausal bleeding Urinary Symptoms:no hematuria; no incontinence; no nocturia; no urinary frequency Vulva:no genital lesion; no vulvar atrophy Vagina:normal vaginal discharge; no vaginal atrophy Breast:no breast lump; no nipple discharge; no breast pain Sexual Complaints:no sexual complaints Psychological Symptoms:no depression; no anxiety Preventive Measures:encourage regular mammograms starting age 40; encourage self breast examination; encourage regular exercise; encourage no tobacco use; needs to schedule mammogram 72 yo G0 F presents for an annual. No complaints at this time. DAVID Smith 10/14/2017 15:01:27 10/16/2018 text/html Breast ProblemsReported bypatient.Quality:asym ptomatic; no bloody discharge; no brown discharge; no milky discharge; no yellow-clear discharge; no yellow-green discharge; non-tender; improving; no mass Context:prior mammogram normal; performs breast self-examination; no breast implants; no family history of breast cancer; no history of breast cancer; no radiation treatment; no chemotherapy; no cancer; no previous biopsies; no miscarriages; recent MRI normal; lymph node status negative Modifying Factors:no recent change in exercise habits; no recent changes in weight; no recent changes in diet; no recent changes in medication dosage of hormone replacement therapy Aggravating Factors:none Associated Symptoms:no fever; no chills; no breast reddening; no nipple discharge; no sore nipples; no nipple inversion; breasts feel normal; no breast swelling; no arm pain; no arm swelling; no chest pain; no malaise; no breast lump; no change in breast skin 73 yo WF G0 here for CBE DAVID Smith 10/16/2018 18:35:22 10/21/2019 text/html Menopausal SymptomsReported bypatient.Associated Symptoms:no abdominal pain; no pelvic pain; no abnormal bleeding; no vaginal discharge; no dysuria; no dyspareunia; no changes in bowel function; no fever; no irritability; no depression; no anxiety; no skin changes; no loss of libido; no changes in urination;vaginal dryness 74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 Takes xanax at night to sleep. Also needs refill DAVID Smith 10/21/2019 15:00:40 01/26/2020 text/html Menopausal SymptomsReported bypatient.Associated Symptoms:no abdominal pain; no pelvic pain; no abnormal bleeding; no vaginal discharge; no dysuria; no dyspareunia; no changes in bowel function; no fever; no irritability; no depression; no anxiety; no skin changes; no loss of libido;vaginal dryness 74yo f/u for atrophic vaginitis. Experiencing urinary urgency. Omid GlassJose Ramon fina [facility] 03/02/2020 16:46:48 02/01/2021 text/html Menopausal SymptomsReported bypatient.Quality:no hot flashes; no night sweats; no change in libido; no problems with sleep; normal menses; normal mood; does not affect quality of life Aggravating Factors:none Associated Symptoms:no abdominal pain; no pelvic pain; no abnormal bleeding; no vaginal discharge; no dysuria; no dyspareunia; no changes in bowel function; no fever; no vaginal dryness; no irritability; no depression; no anxiety; no skin changes; no loss of libido; no changes in urination 75yo f/u for atrophic vaginitis and urinary urgency. She has noticed great improvement over the past year in her symptoms since beginning medication. Omid GlassJose RamonDAVID meneses - SI 02/02/2021 14:56:05 OBGyn Episode No OBEpisode recorded.
--- OUTSIDE RECORDS SUMMARY | 2024-12-03 12:27 | XMS_ITS | Continuity of Care Document ---
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, [id number] [place] [address] [address], [place], [place], [id number], tel:[phone] [facility] No Information Juan Ramon-1 [phone] 0 Brianne Ricks. [address] , [address], [place], [place], [facility], . tel:[phone] [facility], [address], [place], [place], [id number], [place] tel:[phone] [facility] No Information Juan Ramon-1 5-200 9 Brianne Ricks. [address], [address], [place], [place], [facility], [place]. tel:[phone] [facility], [address], [place], [place], [id number], tel:[phone] [facility] No Information Juan Ramon-0 6-200 7 Doiunique Ricks. [address] , [address], [place], [address], [place]. tel:[phone] Family History Family Member Type Diagnosis Age At Onset No Information Payers Payer name Insurance type Covered democrat ID Authoriza tiadry(s) [place] [id number] [facility] [id number] Social History Type Description Quantity Date Captured [...]
[2024-12-03 12:47] LABS: Hemoglobin 12.9 g/dL (12.0-15.0)
== END 2024-12-03 12:22 | disposition home or self-care (01) ==
LOC: ANHSURGERY 12:25
PROVIDERS: PCP Internal Medicine; Visit Provider Obstetrics & Gynecology
DX: N95.0 Postmenopausal bleeding (principal)
CPT/HCPCS: 36415; 85014; 85018

== ENCOUNTER 2024-12-11 00:28 | Day surgery (SDC) | payer MEDICARE, OTHER, SELFPAY ==
[2024-11-30 15:23] VITALS: BMI 29.7
--- NOTE | 2024-11-30 15:32 | PC.NURSE ---
Report to the Outpatient Waiting Room, entrance under the green pavilion located off [facility], at time _0600am on date _12/11/24 . Planned Procedure Time: __0730am . Time changes happen often and if your time is changed the preop area will call you the afternoon before. - You and your visitor will be asked to self-screen and do not enter if you have any COVID symptoms. Please call surgeon if you need to reschedule. - A mask is optional within the hospital at this time. Patients may have clear liquids (water, carbonated beverages, clear teas, apple juice) until 3 hours prior to surgery with a maximum of 20 ounces. - No food from midnight until time of surgery and no smoking, or chewing tobacco (or any form of nicotine). No chewing gum, candy or mints. (0430am) Take only the following medications with a SIP of water on the morning of surgery: ____Elliptica inhaler, Alprazolam and Tramadol as needed DO NOT STOP ANY OF YOUR OTHER PRESCRIPTION MEDICATIONS PRIOR TO SURGERY EXCEPT THE FOLLOWING Hold all vitamins and supplements for 3 days per anesthesiologist.Date to take last dose is 12/07/24 Medications to discontinue per physician Aspirin and NSAIDS/Motrin/Advil hold [address] Esha Bob Date to take last dose 12/07/24 Please no make-up, nail turkmen, hairspray, perfume, deodorant, or body powder the day of surgery. No jewelry (including any body piercings) or valuables the day of surgery, leave them at home. Please take a shower or bath the night before, or the morning of, surgery with an antibacterial soap. Wear comfortable, loose fitting clothing. - Jewelry must be removed prior to entering the operating room. Rings and piercings that are not removed may be cut off. - The hospital will not accept responsibility for valuables. - Please leave all valuables, including medications, at home the day of surgery. If you are going home after surgery, a licensed freight delivery driver must drive you home. - NO public transportation without another adult if you receive anesthesia. - We recommend that an adult stay with you for 24 hours following discharge. - We also recommend that you do not drive, make important decision, drink alcoholic beverages, or take any drugs that were not prescribed by your health care provider for at least 24 hours after your discharge time. Follow any additional instructions given to you from your surgeon. Telephone instructions given to __Patient and asked if any additional questions and then verbalized understanding. Patient advised to call surgeon office or pre surgery nurse liaison [phone] if any additional questions.
--- NOTE | 2024-12-10 07:54 | PM.IMHP ---
H&P: HPI History of Present Illness Date/Time: 12/10/24 07:54 Chief Complaint: Thickened endometrium Narrative: 79-year-old female with thickened endometrial admitted for hysteroscopy dilatation curettage risks and benefits reviewed. She received the ACOG handout entitled hysteroscopy as well as dilatation curettage. She had all questions answered. She asked to proceed Review of Systems Review of Systems: All systems reviewed & are unremarkable except as noted in HPI and below PMFSH Past Medical History Medical History GERD (gastroesophageal reflux disease) Constipation BMI 34.0-34.9,adult Family history of colon cancer Arthritis Hyperlipidemia Hypertension COPD (chronic obstructive pulmonary disease) Bronchitis Surgical History Surgical History History of hip replacement (~10/2022) Family History Family History Sibling , 01/2022 Agent orange exposure Social History Social History Social History: Caffeine-coffee Smoking packs per day: 1.5 Smoking cigarettes per day: 30.0 Years smoked: 40 Smoking pack-years: 60.00 Smoking status: Former smoker Tobacco type: cigarettes Smoking end date: 07/29/10 Alcohol intake: never Alcohol use details: rarely Substance use: never Lack of Transportation: No Lack of Food: Never True Current Housing: I Have Housing Concerned About Future Housing: No Difficulty Paying Gas/Electric Bills: No Difficulty Paying for Meds: No Currently Unemployed: No Education: Trade/Vocational Certificate Difficulty w/ Childcare or Family Care: No Living arrangements: alone Spiritual care concerns: No Meds Home Medications and Allergies Home Medications Medication Instructions Recorded Confirmed Type alprazolam 0.25 mg tablet 0.25 mg PO TID PRN Anxiety 07/06/19 11/30/24 History aspirin 81 mg tablet,delayed 81 mg PO DAILY 07/06/19 11/30/24 History release hydrochlorothiazide 25 mg tablet 25 mg PO DAILY 07/06/19 11/30/24 History linaclotide 145 mcg capsule 145 mcg PO DAILY 07/06/19 11/30/24 History (Linzess) multivit with minerals-iron 18 1 tablet PO DAILY 07/06/19 11/30/24 History mg-folic ac 400 mcg-vit K 25 mcg tablet (Adults Multivitamin) omega 7-pls-otv-fish oil 910 1 cap PO BID 07/06/19 11/30/24 History mg-1,400 mg capsule (Pinch-3 Fish Oil) pravastatin 40 mg tablet 40 mg PO HS 07/06/19 11/30/24 History tramadol 50 mg tablet 50 mg PO QAM 07/06/19 11/30/24 History cholecalciferol (vitamin D3) 50 50 mcg PO DAILY 12/08/20 11/30/24 History mcg (2,000 unit) capsule omeprazole 20 mg capsule,delayed 20 mg PO DAILY #90 caps 12/07/21 11/30/24 Rx release ibuprofen 200 mg tablet 800 mg PO BID PRN Pain 07/02/23 11/30/24 History potassium chloride 20 mEq oral 40 meq PO .PM 07/02/23 11/30/24 History packet fluticasone furoate 50 1 inh inhalation Q24H 08/26/24 11/30/24 History mcg-vilanterol 25 mcg/dose inhalation powder (Breo Ellipta) estradiol 0.01% (0.1 mg/gram) 1 appful vaginal WEEKLY 11/30/24 11/30/24 History vaginal cream Allergies Allergy/AdvReac Type Severity Reaction Status Date / Time No Known Allergies Allergy Verified 11/30/24 15:16 Exam Const: General: cooperative and healthy appearing Resp: Effort & Inspection: normal respiratory effort and able to speak in complete sentences Auscultation: clear to auscultation bilaterally Cardio: Rate: regular rate Rhythm: regular rhythm GI: Inspection: normal to inspection GI Palp: No No hepatosplenomegaly present Auscultation: normal bowel sounds Rectal Exam: deferred Skin: General skin exam: normal color Psych: Appearance: grossly normal Mental Status: mental status grossly normal Assessment and Plan Assessment and plan (1) Thickened endometrium: Code(s): R93.89 - Abnormal findings on diagnostic imaging of other specified body structures Status: Acute Plan Proceed hysteroscopy/dilatation curettage
--- OUTSIDE RECORDS SUMMARY | 2024-12-11 00:33 | XMS_ITS | Data Portability ---
Author Organization [facility] JAYDENEdwar Address [address] [place] [address] Assessment Encounter Date Assessment Date Assessment LastModified [...] DO Not Attach Compendium, Do Not Delete/merge, [id number] 8 11:02:13 Referral urologist referral 2019 020 [facility] Irving Villegas MD, [address], [place], [address], 0 17:26:14 Procedures None recorded. Surgeries None recorded. Imaging MAMMO, screening , bilateral 2020 021 [facility] ([facility] Scheduling), [address] [place], [address], 1 13:24:01 MAMMO, screening , bilateral 2018 019 [facility] (One Call Scheduling), [address] [place], [address], 9 02:31:07 MAMMO, screening , bilateral 2017 018 [facility] (One Call Scheduling), [address] [place], [address], 8 13:52:18 Medication Orders Linzess 145 mcg capsule 2020 021 [facility], [address] [place] [address], [id number], 1 15:49:35 Premarin 0.625 mg/gram vaginal cream 2020 021 [facility], [address] [place] [address], [id number], 1 15:49:36 oxybutyni n chloride ER 10 mg tablet,ex tended release 24 hr 2020 021 [facility], [address] [place] [address], [id number], 1 15:49:37 Premarin 0.625 mg/gram vaginal cream 2019 020 [facility], [address] [place] [address], [id number], 0 12:33:09 Elier s Butt Paste 40 % topical ointment 2019 020 [facility], [address] [place] [address], [id number], 0 17:51:11 Premarin 0.625 mg/gram vaginal cream 2019 020 [facility], [address] [place] [address], [id number], 0 15:00:22 Linzess 145 mcg capsule 2018 019 [facility] [address] [place], [address], 9 12:43:35 Linzess 145 mcg capsule 2017 018 [facility] [address] [place], [address], 8 11:02:52 Complete Multivita min tablet 2017 018 [facility] [address] [place], [address], 8 14:59:34 Calcium 500 + D 500 mg-5 mcg (200 unit) tablet 2017 018 [email or web address] [facility] [address] [place], [address], 9 12:21:03 Patient TargetsNo targets recorded. Patient Instructions Encounter Date Encounter Id Patient Instructions Last Modified By Organization Details Last Modified Time 10/14/2017 [id number] mammogram: about this test mwasserman Not available 10/14/2017 11:02:38 mammogram screening patient instructions mwasserman Not available 10/14/2017 11:02:38 10/16/2018 [id number] mammogram: about this test mwasserman Not available 10/16/2018 12:43:35 10/21/2019 [id number] atrophic vaginitis: care instructions mwasserman Not available 10/21/2019 14:58:54 01/26/2020 [id number] atrophic vaginitis: care instructions mwasserman Not available 01/26/2020 15:06:28 Stress Incontinence: Care Instructions mwasserman Not available 01/26/2020 12:31:51 kegel exercises: care instructions mwasserman Not available 01/26/2020 17:54:08 urinary incontinence information mwasserman Not available 01/26/2020 17:54:08 kegel exercises mwasserman Not available 01/26/2020 17:54:08 Eczema: Care Instructions mwasserman Not available 01/26/2020 17:49:47 02/01/2021 [id number] mammogram: about this test mwasserman Not available [...] Urina ry incontinence Referring Physician: Omid Albright, COUNTY LIBRARY DIRECTOR, Encounter Date: 01/26/2020 Results Created Date Observation Date Name Description Value Unit Range Abnormal Flag Note LastModifiedBy Organization Detail LastModifiedTime 10/15/19 18 10/14/2017 urina lysis , dipst ick Leukocytes Negati ve Not Available In-Office Order Internal Use Only DO Not Attach Compendium DO Not Attach Compendium, Do Not Delete/merge, [id number] 10/14/2017 10:39:09 10/15/19 18 10/14/2017 urina lysis , dipst ick Nitrite negati ve Not Available In-Office Order Internal Use Only DO Not Attach Compendium DO Not Attach Compendium, Do Not Delete/merge, [id number] 10/14/2017 10:39:09 10/15/19 18 10/14/2017 urina lysis , dipst ick Urobilinogen .2 Not Available In-Of fice Order Internal Use Only DO Not Attach Compendium DO Not Attach Compendium, Do Not Delete/merge, [id number] 10/14/2017 10:39:09 10/15/19 18 10/14/2017 urina lysis , dipst ick Protein Negati ve Not Available In-Office Order Internal Use Only DO Not Attach Compendium DO Not Attach Compendium, Do Not Delete/merge, [id number] 10/14/2017 10:39:09 10/15/19 18 10/14/2017 urina lysis , dipst ick pH 6.0 Not Available In-Office Order Internal Use Only DO Not Attach Compendium DO Not Attach Compendium, Do Not Delete/merge, [id number] 10/14/2017 10:39:09 10/15/19 18 10/14/2017 urina lysis , dipst ick Blood Negati ve Not Available In-Office Order Internal Use Only DO Not Attach Compendium DO Not Attach Compendium, Do Not Delete/merge, [id number] 10/14/2017 10:39:09 10/15/19 18 10/14/2017 urina lysis , dipst ick Specific [place] 1.025 Not Available In-Off ice Order Internal [...] DO Not Attach Compendium, Do Not Delete/merge, [id number] 10/14/2017 10:39:09 10/15/19 18 10/14/2017 urina lysis [...] DO Not Attach Compendium, Do Not Delete/merge, [id number] 10/14/2017 10:39:09 11/02/19 18 11/01/2017 MAMMO , scree mariela, bilat eral No observ ation record ed. [facility] (Imaging) [address] [place], [address], 11/03/2017 17:49:21 11/14/19 19 11/13/2018 MAMMO , scree mariela, bilat eral No observ ation record ed. [facility] (Im[facility]) [address] [place], [address], 11/24/2018 17:52:23 12/30/19 20 12/30/2019 MAMMO , scree mariela, bilat eral No observ ation record ed. [facility] (One Call Scheduling) [address] [place], [address], 01/26/2020 17:36:35 12/30/19 20 12/30/2019 MAMMO , scree mariela, bilat eral No observ ation record ed. [facility] (Imaging) [address] [place], [address], 01/26/2020 17:36:35 02/09/20 21 02/08/2021 MAMMO , scree mariela, bilat eral No observ ation record ed. [facility] [address] [place], [address], 02/11/2021 14:21:26 Result Notes None recorded. Problems Name Problem SNOMED Code Status Onset Date Resolution Date Notes Provider Name and Address Organization Details Recorded Time Chronic idiopathic constipation 96515350 Active 2017 Omid Jose Ramonrusty hard[place], [place] - [facility] 8 11:01:55 Atrophic vaginitis 86410214 Active Omid Jose Ramon null, [facility] 6 11:22:14 Menopausal syndrome 175909041 Active Omid Jose Ramon null, [place] - [facility] 6 11:22:14 Candidiasis of vagina 26408258 Active Omid Jose Ramon null, [place] - [facility] 6 19:43:01 Problem Notes None recorded. Procedures Surgical History Date Name Laterality Status Provider Name and Address Organization Details Recorded Time 12/30/19 20 Most Recent Mammogram completed CHARLI Hernandez [facility] 01/26/2020 11:19:46 10/07/19 15 Date of Last Pap Smear completed CHARLI Del Toro [facility] 10/10/2015 10:43:09 07/29/19 09 Back Surgery completed CHARLI Hernandez - [facility] 10/16/2018 12:23:29 07/29/18 92 Cholecystectomy completed Haley Hardy MA [place] - [facility] 10/10/2016 10:22:50 Imaging Results Imaging Date Name Status LastModified by Organiz ation Details LastModified Time 11/01/2017 MAMMO, screening, bilateral completed [facility] ([facility]) [address] [place], [address], 11/03/2017 17:49:21 11/13/2018 MAMMO, screening, bilateral completed [facility] ([facility]) [address] [place], [address], 11/24/2018 17:52:23 12/30/2019 MAMMO, screening, bilateral completed [facility] (One Call Scheduling) [address] [place], [address], 01/26/2020 17:36:35 12/30/2019 MAMMO, screening, bilateral completed [facility] (Im[facility]) [address] [place], [address], 01/26/2020 17:36:35 02/08/2021 MAMMO, screening, bilateral completed [facility] [address] [place], [address], 02/11/2021 14:21:26 Procedure Notes None recorded. Medical Equipment None Reported. Allergies Allergen ID Allergen Name Allergen Category Reaction Reaction Severity Criticality Documentation Date Start Date Code Code System Note Provider Name and Address Organization Details Recorded Time 12600 Ansaid medicatio n hives moderate Not available 10/06/2014 1 RxNorm Haley Hardy MA null, [place] - [facility] 6 10:49:19 Medications Name Sig [...] Available Not Available No t Available multivit,mi [id number] active Not Available Not Available Not Available Linzess 72 mcg capsule 10/16 completed Not Available Not Available Not Available Vitals Date Recorded Body height Body mass index (BMI) Body weight Systolic blood pressure Diastolic blood pressure Provider Name and Address Organization Details Last Updated DateTime 10/14/2017 167.64 cm 34.7 kg/m2 06904.36 g 122 mm[Hg] 82 mm[Hg] Blanca Fay MA [facility] 8 10:36:00 Date Recorded Body height Body mass index (BMI) Body weight Systolic blood pressure Diastolic blood pressure Provider Name and Address Organization Details Last Updated DateTime 10/16/2018 167.64 cm 33.7 kg/m2 51233.81 g 128 mm[Hg] 74 mm[Hg] Lakeshia Berger MA [facility] 9 12:26:47 Date Recorded Body height Provider Name an d Address Organization Details Last Updated DateTime 10/21/2019 167.64 cm Nenita Welsh MA [facility] 10/20 14:40:21 Date Recorded Body height Body mass index (BMI) Body weight Systolic blood pressure Diastolic blood pressure Provider Name and Address Organization Details Last Updated DateTime 01/26/2020 167.64 cm 34.1 kg/m2 83580.99 g 102 mm[Hg] 58 mm[Hg] Lakeshia Berger MA [place] - [facility] 0 11:21:50 Date Recorded Body height Body mass index (BMI) Body weight Systolic blood pressure Diastolic blood pressure Provider Name and Address Organization Details Last Updated DateTime 02/01/2021 167.64 cm 33.9 kg/m2 92011.4 g 124 mm[Hg] 80 mm[Hg] Aniya Porter MA [place] - [facility] 1 15:12:49 Social History Question Answer Notes LastModified by Organizat ion Details LastModified Time Tobacco Smoking Status Former Smoker 10 YEARS AGO Nenita Welsh [place] null, [place] - [facility] 10/21/2019 14:44:31 Do You Have An Advance Directive? Yes Information not available 10/06/2014 Is Blood Transfusion Acceptable In An Emergency? Yes Information not available 10/06/2014 What Is Your Level Of Caffeine Consumption? Heavy Information not available 10/06/2014 How Much Tobacco Do You Chew? None Information not available 10/06/2014 What Type Of Diet Are You Following? REGULAR Information not available 10/06/2014 Which Illicit Or Recreational Drugs Have You Used? None Information not available 10/06/2014 Education 2 Year College Information not available 10/06/2014 Live Alone Or [...] Sexually Active? No Information not available 10/06/2014 How Much Tobacco Do You Smoke? No Information not available 10/06/2014 General Stress Level Low Information not available 10/06/2014 Do You Use Sunscreen Routinely? No Information not available 10/06/2014 On What Date Was Tobacco Cessation Counseling Provided? 02/01/2021 Information not available 02/01/2021 Sex: Unknown Functional Status Question Answer Note LastModified by Organizat ion Details LastModified Time What is your level of alcohol consumption? Occasional Information not available 10/06/2014 Do you or have you ever used smokeless tobacco? Never used smokeless tobacco Information not available 10/21/2019 Are you currently employed? 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 Never used electronic cigarettes Information not available 10/21/2019 What is your exercise level? Occasional Information not available 10/06/2014 Mental Status None recorded. Family History Relationship Description Onset Age of this Age Resolved Age Notes LastModified by Organization Details LastModified Time Father Malignant neoplasm of lung mwasserman Not available 10/09 11:07:46 Mother Multiple sclerosis mwasserman Not available 10/09 11:07:46 Medical History Condition Response Heart Problems N Other N Breast Cancer N Thyroid Problems N Kidney or Bladder Problems N GI Problems N Lung Disease Y Depression N Blood Clots N Acne N Breast Problem N Eating Disorder N Anemia N Anesthesia Complications N Headaches/Migraines N Anxiety Disorder N Diabetes N Ovarian Cancer N Muscle, Joint, or Bone Problems N Blood Transfusions N Arthritis N Seizures/Epilepsy N Polyps N Infertility N Acid Reflux (GERD) N Cancer N Stroke N Abuse/Domestic Violence N Asthma N Endometriosis N High Cholesterol Y Hepatitis N Liver Disease N Heart Disease N Fibromyalgia N Pre-Eclampsia N Hypertension N Osteoporosis N Kidney Disease N Gynecological History Statement/Question Response Abnormal Pap [...] split virus, quadrivalent, preservative 9 completed Nenita Welsh [place] null, [place] - [facility] 10/21/2019 14:43:53 COVID-19, mRNA, LNP-S, PF, 100 mcg/0.5mL dose or 50 mcg/0.25mL dose 1 completed William Kahn fina, [place] - [facility] 01/27/2021 16:14:19 COVID-19, mRNA, LNP-S, PF, 100 mcg/0.5mL dose or 50 mcg/0.25mL dose 1 completed William Kahn fina, [place] - [facility] 01/27/2021 16:14:38 Past Encounters Encounter ID Performer Location Encounter Start Date Encounter Closed Date Diagnosis/Indication Diagnosis SNOMED-CT Code Diagnosis ICD10 Code Diagnosis Note [id number] MD Ricardo Andersen (COUNT[facility] LIBRARY DIRECTOR) [address] [place] [address] [id number] 10/06/2014 09:51:46 10/06/2014 12:04:59 Gynecologic examination 94108405 Postmenopausal state 29482745 Screening for malignant neoplasm of breast 211443441 [id number] Omid Albright MD [facility] ([facility] LIBRARY DIRECTOR) [address] [place] [address] [id number] 10/10/2015 10:36:05 10/10/2015 11:57:46 Atrophic vaginitis 54109128 N95.2 Menopausal syndrome 1237 36912 N95.9 Screening mammography 24 053305 Z12.31 [id number] [facility] [address] [place] [address] [id number] 0 10/10/2016 09:56:47 10/11/2016 16:11:10 Screening mammography 33495119 Z12.31 Irritable bowel syndrome 82496148 K58.9 Swollen abdomen 59381935 R14.0 Atrophic vaginitis 68000 000 N95.2 Obesity 100007162 E66.9 [id number] MD Ricardo Andersen (COUNTY LIBRARY DIRECTOR) [address] [place] [address] [id number] 0 10/14/2017 10:01:40 10/14/2017 11:12:29 Chronic idiopathic constipation 34527448 K59.04 Irritable bowel syndrome 89176037 K58.9 Screening mammography 24 710572 Z12.31 Family iganni nning surveillance 125548333 Z30.09 [id number] [facility] [address] [place] [address] [id number] 0 10/16/2018 11:52:09 10/17/2018 16:25:30 Screening mammography 27964138 Z12.31 Irritable bowel syndrome 53475125 K58.9 [id number] Omid Albright MD [facility] ([facility] LIBRARY DIRECTOR) [address] [place] [address] [id number] 0 10/21/2019 14:10:56 10/21/2019 15:12:15 Atrophic vaginitis 93533627 N95.2 [id number] [facility] [address] [place] [address] [id number] 01/26/2020 10:46:51 01/27/2020 11:39:19 Menopausal syndrome 377643533 N95.9 Atrophic vaginitis 83056 000 N95.2 Urinary incontinence 165 670130 R32 Atopic dermatitis 688639 01 L20.9 [id number] Omid Albright MD [facility] ([facility]RARY DIRECTOR) [address] [place] [address] [id number] 02/01/2021 14:50:04 02/11/2021 20:12:20 Atrophic vaginitis 59346357 N95.2 Menopausal syndrome 1237 02243 N95.9 Screening mammography 24 722268 Z12.31 Chronic id iopathic constipation 98024425 K59.04 Overactive urinary bladder 747439459 N32.81 Health Concerns Section Related Observation LastModified by Organization Detai ls LastModified Time None Recorded Concern Status LastModified by Organization Details LastModified Time None Recorded Advance Directives Directive Y: Payers Encounter Date Sequence Insurance Name Policy Number Policy Kebede Covered Member ID Kebede Member ID Guarantor Name 10/14/2017 1 [place] Mine Girard [id number] Shelli Shaji 10/14/2017 2 [employer] (MEDICARE SUPPLEMENT) Joyce Rodriugez Shaji [id number] Joyce Bolton Shaji 10/16/2018 1 [place] Mine Shaji [id number] 20 Joyce Bolton Shaji 10/16/2018 2 [employer] (MEDICARE SUPPLEMENT) Joyce Rodriguez Shaji [id number] Joyce Bolton Shaji 10/21/2019 1 [place] Mine Shaji [id number] 20 Joyce Bolton Shaji 10/21/2019 2 [employer] (MEDICARE SUPPLEMENT) Joyce Rodriguez Shaji [id number] Shelli Shaji 01/26/2020 1 [place] Mine Shaji [id number] 20 Joyce Bolton Shaji 01/26/2020 2 [employer] (MEDICARE SUPPLEMENT) Joyce Rodriguez Shaji [id number] oJyce Bolton Shaji 02/01/2021 1 [place] Mine Shaji [id number] 20 Joyce Bolton Shaji 02/01/2021 2 [employer] (MEDICARE SUPPLEMENT) Joyce Rodriguez Shaji [id number] Shelli Koziol Notes Date Note Type Note Provider Name and Address Organization Details Recorded Time 811680|[id number]|2024-12-11 07:10:56|2024-12-11 07:10:56|[facility]PD[facility]||||"Anes - Initial Pre Proc Eval Procedure: Operation Date: 12/11/24 07:30 Proposed Procedures p Hysteroscopy, Dilation and Curettage - Vitaly Bob MD Date/Time: 12/11/24 07:10 Surgeon: Vitaly Bob MD Pre Op Diagnosis: post menopausal bleeding Patient Data Age: 79 Gender: F Height: 1.68 m Weight: 83.4 kg Allergies Allergy/AdvReac Type Severity Reaction Status Date / Time No Known Allergies Allergy Verified 11/30/24 15:16 Home Medications Medication Instructions Recorded Confirmed Type alprazolam 0.25 mg tablet 0.25 mg PO TID PRN Anxiety 07/06/19 11/30/24 History aspirin 81 mg tablet,delayed 81 mg PO DAILY 07/06/19 11/30/24 History release hydrochlorothiazide 25 mg tablet 25 mg PO DAILY 07/06/19 11/30/24 History linaclotide 145 mcg capsule 145 mcg PO DAILY 07/06/19 11/30/24 History (Linzess) multivit with minerals-iron 18 1 tablet PO DAILY 07/06/19 11/30/24 History mg-folic ac 400 mcg-vit K 25 mcg tablet (Adults Multivitamin) omega 2-dot-dks-fish oil 910 1 cap PO BID 07/06/19 11/30/24 History mg-1,400 mg capsule (Gonzales-3 Fish Oil) pravastatin 40 mg tablet 40 mg PO HS 07/06/19 11/30/24 History tramadol 50 mg tablet 50 mg PO QAM 07/06/19 11/30/24 History cholecalciferol (vitamin D3) 50 50 mcg PO DAILY 12/08/20 11/30/24 History mcg (2,000 unit) capsule omeprazole 20 mg capsule,delayed 20 mg PO DAILY #90 caps 12/07/21 11/30/24 Rx release ibuprofen 200 mg tablet 800 mg PO BID PRN Pain 07/02/23 11/30/24 History potassium chloride 20 mEq oral 40 meq PO .PM 07/02/23 11/30/24 History packet fluticasone furoate 50 1 inh inhalation Q24H 08/26/24 11/30/24 History mcg-vilanterol 25 mcg/dose inhalation powder (Breo Ellipta) estradiol 0.01% (0.1 mg/gram) 1 appful vaginal WEEKLY 11/30/24 11/30/24 History vaginal cream hydrocodone 5 mg-acetaminophen 325 1 tablet PO Q4H PRN pain #10 tabs 12/11/24 Rx mg tablet Patient hx anesthesia problems: none Family hx anesthesia problems: none Results Review: All pre-operative results and documents have been reviewed as part of the pre-operative evaluation. [facility] Past Medical History Medical History GERD (gastroesophageal reflux disease) Constipation BMI 34.0-34.9,adult Family history of colon cancer Arthritis Hyperlipidemia Hypertension COPD (chronic obstructive pulmonary disease) Bronchitis Surgical History Surgical History History of hip replacement (~10/2022) Family History Family History Sibling , 01/2022 Agent orange exposure Social History Social History Social History: Caffeine-coffee Smoking packs per day: 1.5 Smoking cigarettes per day: 30.0 Years smoked: 40 Smoking pack-years: 60.00 Smoking status: Former smoker Tobacco type: cigarettes Smoking end date: 07/29/10 Alcohol intake: current Alcohol use details: rarely Substance use: never Lack of Transportation: No Lack of Food: Never True Current Housing: I Have Housing Concerned About Future Housing: No Difficulty Paying Gas/Electric Bills: No Difficulty Paying for Meds: No Currently Unemployed: No Education: Trade/Vocational Certificate Difficulty w/ Childcare or Family Care: No Living arrangements: alone Spiritual care concerns: No Anes - Eval Final PreProcedure Day of Procedure 12/11/24 07:10 Patient weight: obese Heart: regular rate and rhythm Lungs: decreased breath sounds Airway: Mallampati scale class II Neurological: alert and oriented Last oral intake: >/= 8 hours ASA classification: IV Emergent: no Anesthetic plan: proceed Anesthesia type and monitoring: general GIVS and standard monitoring Results Review: All pre-operative results and documents have been reviewed as part of the pre-operative evaluation. Informed Consent: The patient's anesthetic plan and its attendant risks and benefits were discussed with the patient/family/POA. Questions were solicited and answers provided to the satisfaction of the patient/family/POA."
--- OUTSIDE RECORDS SUMMARY | 2024-12-11 00:33 | XMS_ITS | Continuity of Care Document ---
Author Organization [facility] Address [address] [place] [address] Phone Care Team Providers Care English Drawer Name Role Phone Rambo Decker Unavailable Unavailable Procedures Procedure Date Eye Exam & Treatment Refraction Eye Exam & Treatment Refraction Eye Exam, New Patient Refraction Advance Directives Directive Yes / No Effective Date File Name No Information Encounters Encounter Description Practice Location Reason(s) For Visit Diagnoses Date Provider Providers Copied on Encounter [facility], [address] [place] [address] [address], [place], [place], [id number], tel:[phone] [facility] No Information Juan Ramon-1 [phone] Brianne Ricks. [address] , [address], [place], [place], [facility], . tel:[phone] [facility], [address], [place], [place], [id number], [place] tel:[phone] [facility] No Information Juan Ramon-1 [phone] Brianne Ricks. [address], [place], [place], [facility], [place]. tel:[phone] [facility], [address], [place], [place], [id number], [place] tel:[phone] [facility] No Information Juan Ramon-0 [phone] Doiunique Ricks. [address] , [address], [place], [address], [place]. tel:[phone] Family History Family Member Type Diagnosis Age At Onset No Information Payers Payer name Insurance type Covered republican ID Authoriza tiadry(s) [place] [id number] [facility] [id number] Social History Type Description Quantity Date Captured [...]
[2024-12-11] MEDS: LACTATED RINGERS 1,000 ML 30 ML IV CONT (06:30)
--- NOTE | 2024-12-11 06:37 | WPDHPUPDATE1 ---
History and Physical Update Update Date/Time: 12/11/24 06:37 History and Physical has been reviewed, including an updated exam of the patient. There are NO changes in the patient's condition. Risks, benefits, and alternatives have been discussed and questions answered. Patient agrees to proceed with procedure.
[2024-12-11 07:00] VITALS: BP 120/61; PULSE 70; RESP 16; TEMP 36.8; O2SAT 100
--- NOTE | 2024-12-11 07:10 | P.PNAN_ITS ---
Anes - Initial Pre Proc Eval Procedure: Operation Date: 12/11/24 07:30 Proposed Procedures p Hysteroscopy, Dilation and Curettage - Vitaly Bob MD Date/Time: 12/11/24 07:10 Surgeon: Vitaly Bob MD Pre Op Diagnosis: post menopausal bleeding Patient Data Age: 79 Gender: F Height: 1.68 m Weight: 83.4 kg Allergies Allergy/AdvReac Type Severity Reaction Status Date / Time No Known Allergies Allergy Verified 11/30/24 15:16 Home Medications Medication Instructions Recorded Confirmed Type alprazolam 0.25 mg tablet 0.25 mg PO TID PRN Anxiety 07/06/19 11/30/24 History aspirin 81 mg tablet,delayed 81 mg PO DAILY 07/06/19 11/30/24 History release hydrochlorothiazide 25 mg tablet 25 mg PO DAILY 07/06/19 11/30/24 History linaclotide 145 mcg capsule 145 mcg PO DAILY 07/06/19 11/30/24 History (Linzess) multivit with minerals-iron 18 1 tablet PO DAILY 07/06/19 11/30/24 History mg-folic ac 400 mcg-vit K 25 mcg tablet (Adults Multivitamin) omega 6-jhn-oev-fish oil 910 1 cap PO BID 07/06/19 11/30/24 History mg-1,400 mg capsule ([place]-3 Fish Oil) pravastatin 40 mg tablet 40 mg PO HS 07/06/19 11/30/24 History tramadol 50 mg tablet 50 mg PO QAM 07/06/19 11/30/24 History cholecalciferol (vitamin D3) 50 50 mcg PO DAILY 12/08/20 11/30/24 History mcg (2,000 unit) capsule omeprazole 20 mg capsule,delayed 20 mg PO DAILY #90 caps 12/07/21 11/30/24 Rx release ibuprofen 200 mg tablet 800 mg PO BID PRN Pain 07/02/23 11/30/24 History potassium chloride 20 mEq oral 40 meq PO .PM 07/02/23 11/30/24 History packet fluticasone furoate 50 1 inh inhalation Q24H 08/26/24 11/30/24 History mcg-vilanterol 25 mcg/dose inhalation powder (Breo Ellipta) estradiol 0.01% (0.1 mg/gram) 1 appful vaginal WEEKLY 11/30/24 11/30/24 History vaginal cream hydrocodone 5 mg-acetaminophen 325 1 tablet PO Q4H PRN pain #10 tabs 12/11/24 Rx mg tablet Patient hx anesthesia problems: none Family hx anesthesia problems: none Results Review: All pre-operative results and documents have been reviewed as part of the pre- operative evaluation. [facility] Past Medical History Medical History GERD (gastroesophageal reflux disease) Constipation BMI 34.0-34.9,adult Family history of colon cancer Arthritis Hyperlipidemia Hypertension COPD (chronic obstructive pulmonary disease) Bronchitis Surgical History Surgical History History of hip replacement (~10/2022) Family History Family History Sibling , 01/2022 Agent orange exposure Social History Social History Social History: Caffeine-coffee Smoking packs per day: 1.5 Smoking cigarettes per day: 30.0 Years smoked: 40 Smoking pack-years: 60.00 Smoking status: Former smoker Tobacco type: cigarettes Smoking end date: 07/29/10 Alcohol intake: current Alcohol use details: rarely Substance use: never Lack of Transportation: No Lack of Food: Never True Current Housing: I Have Housing Concerned About Future Housing: No Difficulty Paying Gas/Electric Bills: No Difficulty Paying for Meds: No Currently Unemployed: No Education: Trade/Vocational Certificate Difficulty w/ Childcare or Family Care: No Living arrangements: alone Spiritual care concerns: No Anes - Eval Final PreProcedure Day of Procedure 12/11/24 07:10 Patient weight: obese Heart: regular rate and rhythm Lungs: decreased breath sounds Airway: Mallampati scale class II Neurological: alert and oriented Last oral intake: >/= 8 hours ASA classification: IV Emergent: no Anesthetic plan: proceed Anesthesia type and monitoring: general GIVS and standard monitoring Results Review: All pre-operative results and documents have been reviewed as part of the pre- operative evaluation. Informed Consent: The patient's anesthetic plan and its attendant risks and benefits were discussed with the patient/family/POA. Questions were solicited and answers provided to the satisfaction of the patient/family/POA.
[2024-12-11] MEDS: ceFAZolin 2 GM/D5W 50 ML 2 GM/50 ML BAG IVPB (07:19)
[2024-12-11] MEDS: ACETAMINOPHEN 500 MG TABLET 1000 MG PO (07:32)
[2024-12-11 07:47] VITALS: BP 137/57; PULSE 71; RESP 16; O2SAT 98
--- NOTE | 2024-12-11 07:47 | W.PM.PROC2 ---
Procedure Note - Detailed Date of Procedure 12/11/24 Pre-op Diagnosis post menopausal bleeding Post-op Diagnosis Same Procedure Performed Hysteroscopy/dilatation curettage Surgeon Vitaly Bob MD Anesthesia MAC and Local Indications 79-year-old female with thickened endometrium on imaging Findings Uterus to 7cm. Benign-appearing endometrium with mucus plug Description of Procedure Patient was prepped and draped sterile fashion placed in the dorsal lithotomy position. Under excellent IV sedation weighted speculum placed in posterior fornix vagina. Anterior lip of the cervix grasped with a single-tooth tenaculum. 2.5cc 1% xylocaine anesthesia placed at 2, 4, 8, 10:00 a.m. of the cervix. Uterus sounded to7.5cm. Serial dilatation with fragmented dilators performed followed by passage of the 5mm visualizing hysteroscope. The mucus plug was noted and this was removed without difficulty. The uterus was scraped over the entire 360° but minimal to no tissue was able to be taken due to the atrophy the instruments withdrawn blood loss estimated 5cc. All sponge, needle, instrument counts were correct. There were no immediate complications Estimated Blood Loss 5 Drains No Packing No Pathology Yes Complications No immediate complications Condition Stable Disposition PACU
[2024-12-11 08:05] VITALS: BP 131/58; PULSE 73; RESP 16; O2SAT 94
[2024-12-11 08:30] VITALS: BP 156/77; PULSE 67; RESP 16
== END 2024-12-11 08:49 | disposition home or self-care (01) ==
PROVIDERS: PCP Internal Medicine; Visit Provider Obstetrics & Gynecology
PROC: 0U5B8ZZ Destruction of Endometrium, Via Natural or Artificial Opening Endoscopic (ICD-10-PCS; CPT 58563; principal; 2024-12-11 07:30)
DX: R93.89 Abnormal findings on diagnostic imaging of other specified body structures (principal); N85.8 Other specified noninflammatory disorders of uterus; E78.5 Hyperlipidemia, unspecified; I10 Essential (primary) hypertension; J44.9 Chronic obstructive pulmonary disease, unspecified; K21.9 Gastro-esophageal reflux disease without esophagitis; M19.90 Unspecified osteoarthritis, unspecified site; E66.9 Obesity, unspecified; Z68.33 Body mass index [BMI] 33.0-33.9, adult; Z79.82 Long term (current) use of aspirin; Z79.891 Long term (current) use of opiate analgesic; Z79.51 Long term (current) use of inhaled steroids; Z79.1 Long term (current) use of non-steroidal anti-inflammatories (NSAID); Z98.890 Other specified postprocedural states; Z87.891 Personal history of nicotine dependence; Z80.0 Family history of malignant neoplasm of digestive organs
CPT/HCPCS: 58558; 88305; A9270; J0690; J2003; J2704; J3010; J7120

== ENCOUNTER 2025-05-18 20:38 | Emergency (ER) | payer MEDICARE, OTHER, SELFPAY ==
--- NOTE | ~2025-05-18 | XR_ITS ---
XR elbow LT 2V INDICATION: fall . COMPARISON: None. FINDINGS: AP, lateral views of the left elbow demonstrate no acute fracture or dislocation. IMPRESSION: No acute fracture or dislocation. Reviewed, dictated and finalized at location S.
--- NOTE | ~2025-05-18 | XR_ITS ---
XR humerus LT INDICATION: pain COMPARISON: None FINDINGS: Frontal and lateral views of the left humerus Humerus demonstrate acute displaced fracture of the greater tuberosity of the humerus. There is a surgical neck fracture. IMPRESSION: Acute displaced fracture of the greater tuberosity humerus and surgical neck Reviewed, dictated and finalized at location S.
--- NOTE | ~2025-05-18 | XR_ITS ---
XR shoulder LT min 2V INDICATION: pain COMPARISON: None FINDINGS: Three views of the left shoulder demonstrate acute displaced fracture of the greater tuberosity and surgical neck. IMPRESSION: Acute fracture of the proximal humerus. Reviewed, dictated and finalized at location S.
[2025-05-18 20:54] VITALS: BP 189/82; PULSE 75; RESP 16; TEMP 36.4; O2SAT 97
--- NOTE | 2025-05-18 23:46 | ED.FALL ---
HPI - Fall General Chief Complaint: Fall Stated Complaint: fall left arm Time Seen by Provider: 05/18/25 22:50 History of Present Illness HPI Narrative: 79-year-old female with history of hypertension presenting to the emergency department after falling and landing on her left side. Patient states he was mechanical slip and fall. Did not lose consciousness and had no prodromal symptoms. Fell onto her left side onto concrete. Has pain over her proximal left upper extremity. No shoulder pain. Certain positions exacerbated the pain and she has no sensory deficits or weakness. 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 No head trauma or loss of consciousness. No blood thinner use. States that she is hypertensive and has a history of this. No other symptoms such as chest pain, shortness of breath, back pain, fever, chills, syncope, headache, weakness or sensory changes. Related Data Home Medications ?Medication ?Instructions ?Recorded ?Confirmed ?Last Taken ?Type alprazolam 0.25 mg tablet 0.25 mg PO TID PRN Anxiety 07/06/19 11/30/24 09/10/24 History aspirin 81 mg tablet,delayed 81 mg PO DAILY 07/06/19 11/30/24 09/10/24 History release hydrochlorothiazide 25 mg tablet 25 mg PO DAILY 07/06/19 11/30/24 09/10/24 History linaclotide 145 mcg capsule 145 mcg PO DAILY 07/06/19 11/30/24 09/10/24 History (Linzess) multivit with minerals-iron 18 1 tablet PO DAILY 07/06/19 11/30/24 09/10/24 History mg-folic ac 400 mcg-vit K 25 mcg tablet (Adults Multivitamin) omega 3-lwa-ctm-fish oil 910 1 cap PO BID 07/06/19 11/30/24 09/10/24 History mg-1,400 mg capsule ([place]-3 Fish Oil) pravastatin 40 mg tablet 40 mg PO HS 07/06/19 11/30/24 09/10/24 History tramadol 50 mg tablet 50 mg PO QAM 07/06/19 11/30/24 09/10/24 History cholecalciferol (vitamin D3) 50 50 mcg PO DAILY 12/08/20 11/30/24 09/10/24 History mcg (2,000 unit) capsule ibuprofen 200 mg tablet 800 mg PO BID PRN Pain 12/12/1811/30/24 09/10/24 History potassium chloride 20 mEq oral 40 meq PO .PM 07/02/23 11/30/24 09/10/24 History packet fluticasone furoate 50 1 inh inhalation Q24H 08/26/24 11/30/24 09/11/24 History mcg-vilanterol 25 mcg/dose inhalation powder (Breo Ellipta) estradiol 0.01% (0.1 mg/gram) 1 appful vaginal WEEKLY 11/30/24 11/30/24 Unknown History vaginal cream Allergies Allergy/AdvReac Type Severity Reaction Status Date / Time No Known Allergies Allergy Verified 05/18/25 20:59 Review of Systems Review of Systems: As reviewed above in [facility] Past Medical History Medical History GERD (gastroesophageal reflux disease) Constipation BMI 34.0-34.9,adult Family history of colon cancer Arthritis Hyperlipidemia Hypertension COPD (chronic obstructive pulmonary disease) Bronchitis Surgical History Surgical History History of hip replacement (~10/2022) Family History Family History Sibling , 01/2022 Agent orange exposure Social History Social History Social History: Caffeine-coffee Smoking packs per day: 1.5 Smoking cigarettes per day: 30.0 Years smoked: 40 Smoking pack-years: 60.00 Smoking status: Former smoker Tobacco type: cigarettes Smoking end date: 07/29/10 Alcohol intake: current Alcohol use details: rarely Substance use: never Lack of Transportation: No Lack of Food: Never True Current Housing: I Have Housing Concerned About Future Housing: No Difficulty Paying Gas/Electric Bills: No Difficulty Paying for Meds: No Currently Unemployed: No Education: Trade/Vocational Certificate Difficulty w/ Childcare or Family Care: No Living arrangements: alone Spiritual care concerns: No Exam Narrative: GENERAL: [Well-appearing, well-nourished, and in no acute distress.] HEAD: [Normocephalic, atraumatic.] EYES: [PERRLA and EOMI.] ENT: Nares clear, no rhinorrhea or epistaxis. Mucous membranes moist. NECK: Supple. CHEST: No wheezing, no respiratory distress HEART: Strong 2+ symmetric pulses, regular rate and rhythm ABDOMEN: Soft and nondistended EXTREMITIES: Tenderness to palpation over the proximal humeral region but no step-offs deformities. Full range of motion is limited by pain. No swelling or bruising. No anesthesia over the deltoid reason. Full range of motion of the elbow and wrist. 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 Able to oppose each digit. Thumbs-up sign and okay sign intact. No neck pain or step-off/deformities. SKIN: Warm, dry, no rash. NEURO: [No focal deficits]. Alert and oriented [x3.] PSYCH: [Normal mood and affect.] Course Vital Signs Vital signs: Vital Signs Temperature 36.4 C 05/18/25 20:54 Pulse Rate 75 05/18/25 20:54 Respiratory Rate 16 05/18/25 20:54 Blood Pressure 189/82 H 05/18/25 20:54 Pulse Oximetry 97 05/18/25 20:54 Oxygen Delivery Room Air 05/18/25 20:54 Temperature 36.4 C 05/18/25 20:54 Pulse Rate 75 05/18/25 20:54 Respiratory Rate 16 05/18/25 20:54 Blood Pressure 189/82 H 05/18/25 20:54 Pulse Oximetry 97 05/18/25 20:54 Oxygen Delivery Room Air 05/18/25 20:54 MDM - Fall MDM Narrative Medical decision making narrative: 79-year-old female with history of hypertension presenting to the emergency department after falling and landing on her left side. Patient states he was mechanical slip and fall. Did not lose consciousness and had no prodromal symptoms. Fell onto her left side onto concrete. Has pain over her proximal left upper extremity. No shoulder pain. Certain positions exacerbated the pain and she has no sensory deficits or weakness. 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 No head trauma or loss of consciousness. No blood thinner use. States that she is hypertensive and has a history of this. No other symptoms such as chest pain, shortness of breath, back pain, fever, chills, syncope, headache, weakness or sensory changes. Tenderness to palpation over the proximal humeral region but no step-offs deformities. Full range of motion is limited by pain. No swelling or bruising. No anesthesia over the deltoid reason. Full range of motion of the elbow and wrist. 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 Able to oppose each digit. Thumbs-up sign and okay sign intact. No neck pain or step-off/deformities. Mildly hypertensive but no symptoms, does not any further evaluation for asymptomatic hypertension. Likely combination of pain and chronic hypertension. X-rays of the left upper extremity obtained to rule out fracture or dislocation. Suspect proximal humerus fracture based on exam findings. Patient given oxycodone and Toradol. X-rays confirm proximal humeral fracture. She was placed into a shoulder immobilizer and given pain control medications. Given a sling for comfort as well in case she does not like to use the immobilizer. Discussed operative versus non operative management and she already has an orthopedic surgeon that she would like to be referred back to Dr. Mercado. Referral provided, pain control medications sent and return precautions described. Medical Records Attestation: I reviewed the patient's medical records. Imaging Data Attestation: I personally reviewed and interpreted this imaging study as follows: My impression: Impressions Elbow X-Ray 05/18/25 21:17 IMPRESSION: No acute fracture or dislocation. Humerus X-Ray 05/18/25 21:17 IMPRESSION: Acute displaced fracture of the greater tuberosity humerus and surgical neck Shoulder X-Ray 05/18/25 21:28 IMPRESSION: Acute fracture of the proximal humerus. Discharge Plan Discharge Clinical Impression: Fracture of proximal end of humerus, Fall, Chronic hypertension Patient Disposition: Home Condition: Stable Instructions: Antibiotic Form, Arm Fracture in Adults (DC), Proximal Humerus Fracture (ED) Additional Instructions: You have a fracture of the proximal humerus. We have placed you in a shoulder immobilizer and also provided a sling for comfort. Do not need to wear the immobilizer or sling throughout the night unless painful. Fracture typically takes 6 weeks to heal without operative intervention. Follow-up with the orthopedic surgeon for routine visit and follow-up and repeat imaging. If pain is worsening, fracture is not healing or you have new or concerning symptoms operative interventions might be warranted. Return with intractable pain or any other issues otherwise take the prescribed pain medications and follow-up with orthopedics. Patient Language: Wallisian Prescriptions: New ibuprofen 800 mg tablet 800 mg PO TID PRN (Reason: pain) Qty: 30 0RF lidocaine 5 % adhesive patch,medicated 1 patch topical DAILY Qty: 15 0RF Rx Instructions: leave on most painful area for up to 12 hrs oxycodone 5 mg tablet 5 mg PO Q8H PRN (Reason: pain) Qty: 14 0RF acetaminophen [Tylenol Extra Strength] 500 mg tablet 1,000 mg PO TID PRN (Reason: pain) Qty: 30 0RF No Action pravastatin 40 mg Tablet 40 mg PO HS aspirin 81 mg Tablet,Delayed Release (Dr/Ec) 81 mg PO DAILY Patient Comments: HOLD [address] WALLIS tramadol 50 mg Tablet 50 mg PO QAM alprazolam 0.25 mg Tablet 0.25 mg PO TID PRN (Reason: Anxiety) hydrochlorothiazide 25 mg Tablet 25 mg PO DAILY [place]-3 Fish Oil 910-1,400 mg Capsule 1 cap PO BID Linzess 145 mcg Capsule 145 mcg PO DAILY Patient Comments: pt states only takes 72mcg daily HS Adults Multivitamin 18 mg iron-400 mcg-25 mcg Tablet 1 tablet PO DAILY ibuprofen 200 mg tablet 800 mg PO BID PRN (Reason: Pain) potassium chloride 20 mEq packet 40 meq PO .PM cholecalciferol (vitamin D3) 50 mcg (2,000 unit) Capsule 50 mcg PO DAILY Breo Ellipta 50-25 mcg/dose blister with device 1 inh INHALATION Q24H estradiol 0.01 % (0.1 mg/gram) cream 1 appful VAGINAL WEEKLY hydrocodone-acetaminophen 5-325 mg tablet 1 tablet PO Q4H PRN (Reason: pain) Qty: 10 0RF omeprazole 20 mg capsule,delayed release(DR/EC) 20 mg PO DAILY Qty: 90 3RF Follow-up/Referrals: Josesito,Lorne Angel MD [Primary Care Provider] Allen Mercado MD [Physician, Orthopedics] - 1 Week Referral Note: Proximal humerus fracture Time of Disposition: 23:53
[2025-05-18] MEDS: oxyCODONE HCL (*CRX) 5 MG TAB IR PO (23:59)
[2025-05-18] MEDS: KETOROLAC 10 MG TABLET PO (23:59)
== END 2025-05-19 01:04 | disposition home or self-care (01) ==
PROVIDERS: Emergency Provider Student in an Organized Health Care Education/Training Program; PCP Internal Medicine
DX: S42.252A Displaced fracture of greater tuberosity of left humerus, initial encounter for closed fracture (principal); S42.212A Unspecified displaced fracture of surgical neck of left humerus, initial encounter for closed fracture; I10 Essential (primary) hypertension; E78.5 Hyperlipidemia, unspecified; J44.9 Chronic obstructive pulmonary disease, unspecified; K21.9 Gastro-esophageal reflux disease without esophagitis; Z96.649 Presence of unspecified artificial hip joint; Z87.891 Personal history of nicotine dependence; W01.0XXA Fall on same level from slipping, tripping and stumbling without subsequent striking against object, initial encounter
CPT/HCPCS: 73030; 73060; 73070; 99284; A4565; A9270